=== PATIENT | female | born 1985 | race Caucasian/White ===

== ENCOUNTER → 2020-10-11 12:32 | Outpatient (BNVA) | payer OTHER, SELFPAY | PROVIDERS: PCP Internal Medicine; Visit Provider Surgery ==

== ENCOUNTER → 2020-10-22 12:29 | Outpatient (BNVA) | payer OTHER, SELFPAY | PROVIDERS: PCP Internal Medicine; Visit Provider Surgery | DX: Z01.818 Encounter for other preprocedural examination (principal); R06.02 Shortness of breath | CPT/HCPCS: 99202 ==

== ENCOUNTER 2020-10-22 13:53 | Outpatient (REF) | payer OTHER, SELFPAY ==
[2020-10-24 14:27] LABS: H Pylori Breath Test NOT DETECTED (NOT DETECTED)
== END 2020-10-22 13:54 | disposition home or self-care (01) ==
LOC: HO.LNP 13:53
PROVIDERS: Visit Provider Physician Assistant
DX: Z11.0 Encounter for screening for intestinal infectious diseases (principal)
CPT/HCPCS: 83013

== ENCOUNTER 2020-10-22 15:32 | Outpatient (REF) | payer OTHER, SELFPAY | END 2020-10-22 15:33 | disposition home or self-care (01) | LOC: HO.LNP 15:32 | PROVIDERS: Visit Provider Surgery | DX: Z13.89 Encounter for screening for other disorder (principal) ==

== ENCOUNTER 2020-10-23 10:15 | Outpatient (REF) | payer OTHER, SELFPAY ==
--- NOTE | ~2020-10-23 | XR_ITS ---
EXAMINATION: XR CHEST CLINICAL INFORMATION: Shortness of breath COMPARISON: None TECHNIQUE: 2 views of the chest were obtained. FINDINGS: The cardiac and mediastinal contours are normal. The lungs are clear. There is no pleural effusion or pneumothorax. There are degenerative changes of the thoracic spine. The posterior elements of the mid and lower thoracic spine are not included in the [id number]. XR/XR chest 2V IMPRESSION: No evidence for acute disease in the chest.
--- NOTE | 2020-10-23 10:30 | ECG_ITS ---
Test Reason : SOB Blood Pressure : / mmHG Vent. Rate : 068 BPM Atrial Rate : 068 BPM P-R Int : 144 ms QRS Dur : 084 ms QT Int : 396 ms P-R-T Axes : -03 014 004 degrees QTc Int : 421 ms Normal sinus rhythm Normal ECG No previous ECGs available Referred By: Serina Jha Electronically Signed By:Gen Franz
[2020-10-23 11:02] LABS: MANUAL DIFF FLAG NO
[2020-10-23 11:19] LABS: Basophils Percent Auto 0.6 % (0-2); Eosinophils Absolute Auto 0.2 X10*3/uL (0.0-0.4); Eosinophils Percent Auto 3.1 % (0-4); Hematocrit 39.7 % (37-47); Hemoglobin 12.7 g/dl (12.0-16.0); Imm Gran Abs Auto 0.02 X10*3/uL (0.00-0.03); Imm Gran Pct Auto 0.4 % (0.0-0.4); Lymphocytes Absolute Auto 1.7 X10*3/uL (1.2-4.9); Lymphocytes Percent Auto 32.4 % (20-40); Mean Corpuscular Hemoglobin 28.8 pg (27.0-33.0); Mean Platelet Volume 11.1 fL (9.4-12.3); Monocytes Absolute Auto 0.3 X10*3/uL (0.1-1.2); Monocytes Percent Auto 6.3 % (2-11); Neutrophils Absolute Auto 2.9 X10*3/uL (2.0-8.3); Neutrophils Percent Auto 57.2 % (45-73); Platelet Count 258 X10*3/uL (160-400); Red Blood Count 4.41 X10*6/uL (4.20-5.50); Red Cell Distribution Width 12.6 % (11.0-16.0); White Blood Count 5.1 X10*3/uL (4.8-10.8)
[2020-10-23 11:29] LABS: Alanine Aminotransferase 50 U/L (0-31); Alkaline Phosphatase 65 U/L (39-117); Anion Gap 11 (12-20); Aspartate Amino Transferase 37 U/L (5-31); Bilirubin Total 0.4 mg/dL (0.0-1.0); Blood Urea Nitrogen 10 mg/dL (9-16); C Reactive Protein 0.22 mg/dL (< or = 0.50); Calcium 9.2 mg/dL (8.4-10.2); Carbon Dioxide 24 mmol/L (22-29); Chloride 107 mmol/L (96-108); Cholesterol 147 mg/dL; Estimated Glomerular Filt Rate > 60; Glucose Fasting 92 mg/dL (60-99); HDL Cholesterol 51 mg/dL; Iron 60 mcg/dL (30-160); LDL Cholesterol Calculated 84 mg/dl; Percent Iron Saturation 20 % (15-50); Potassium 4.3 mmol/L (3.3-5.1); Sodium 138 mmol/L (135-145); Total Iron Binding Capacity 296 mcg/dL (228-428); Total Protein 7.4 g/dL (6.5-8.0); Triglycerides 62 mg/dL; Unsaturated Iron Binding 236 ug/dL
[2020-10-23 11:43] LABS: Thyroid Stimulating Hormone 0.79 uIU/mL (0.32-4.0); Vitamin D 25-OH Total 23.7 ng/mL (>30)
[2020-10-23 11:55] LABS: Vitamin B12 233 pg/mL (200-900)
[2020-10-25 10:37] LABS: Calcium (PTHI) 9.1 mg/dL (8.6-10.2); PTHI 39 pg/mL (14-64)
[2020-10-26 13:02] LABS: Vitamin B1 11 nmol/L (8-30)
[2020-10-26 22:52] LABS: Vitamin A 33 mcg/dL (38-98)
[2020-10-29 01:17] LABS: Zinc 65 mcg/dL (60-130)
== END 2020-10-23 10:16 | disposition home or self-care (01) ==
LOC: HO.10HDL 10:15
PROVIDERS: Visit Provider Surgery
DX: Z01.818 Encounter for other preprocedural examination (principal); R06.02 Shortness of breath; E55.9 Vitamin D deficiency, unspecified
CPT/HCPCS: 36415; 71046; 80053; 80061; 82306; 82607; 83013; 83540; 83970; 84425; 84443; 84590; 84630; 85025; 86140; 93005; 99211

== ENCOUNTER → 2020-11-05 08:10 | Outpatient (BNVA) | payer OTHER, SELFPAY | PROVIDERS: PCP Internal Medicine; Visit Provider Surgery | DX: E66.01 Morbid (severe) obesity due to excess calories (principal); Z68.41 Body mass index [BMI] 40.0-44.9, adult | CPT/HCPCS: 99212 ==

== ENCOUNTER → 2020-11-19 08:15 | Outpatient (BNVA) | payer OTHER, SELFPAY | PROVIDERS: PCP Internal Medicine; Visit Provider Dietitian, Registered ==

== ENCOUNTER → 2020-12-12 14:33 | Outpatient (BNVA) | payer OTHER, SELFPAY | PROVIDERS: PCP Internal Medicine; Visit Provider Surgery | DX: E66.01 Morbid (severe) obesity due to excess calories (principal); Z68.41 Body mass index [BMI] 40.0-44.9, adult | CPT/HCPCS: 99212 ==

== ENCOUNTER → 2020-12-30 15:03 | Outpatient (BNVA) | payer OTHER, SELFPAY | PROVIDERS: PCP Internal Medicine; Visit Provider Surgery | DX: E66.01 Morbid (severe) obesity due to excess calories (principal); Z68.41 Body mass index [BMI] 40.0-44.9, adult | CPT/HCPCS: 99212 ==

== ENCOUNTER → 2021-01-21 15:15 | Outpatient (BNVA) | payer OTHER, SELFPAY | PROVIDERS: PCP Internal Medicine; Visit Provider Surgery | DX: E66.01 Morbid (severe) obesity due to excess calories (principal); Z68.41 Body mass index [BMI] 40.0-44.9, adult | CPT/HCPCS: 99212 ==

== ENCOUNTER 2021-02-12 09:54 | Outpatient (REF) | payer OTHER, SELFPAY ==
[2021-02-12 14:30] LABS: MANUAL DIFF FLAG NO
[2021-02-12 14:36] LABS: Basophils Percent Auto 0.3 % (0-2); Eosinophils Percent Auto 0.4 % (0-4); Hematocrit 40.7 % (37-47); Hemoglobin 12.9 g/dl (12.0-16.0); Imm Gran Abs Auto 0.02 X10*3/uL (0.00-0.03); Imm Gran Pct Auto 0.3 % (0.0-0.4); Lymphocytes Absolute Auto 1.8 X10*3/uL (1.2-4.9); Mean Corpuscular HGB Conc 31.7 g/dl (31.0-35.0); Mean Corpuscular Hemoglobin 28.8 pg (27.0-33.0); Mean Corpuscular Volume 90.8 fL (80-98); Monocytes Absolute Auto 0.5 X10*3/uL (0.1-1.2); Monocytes Percent Auto 6.2 % (2-11); Neutrophils Absolute Auto 5.2 X10*3/uL (2.0-8.3); Neutrophils Percent Auto 68.8 % (45-73); Platelet Count 303 X10*3/uL (160-400); Red Blood Count 4.48 X10*6/uL (4.20-5.50); Red Cell Distribution Width 12.2 % (11.0-16.0); White Blood Count 7.6 X10*3/uL (4.8-10.8)
[2021-02-14 08:58] LABS: SARS COV2 IgG Positive (Negative)
== END 2021-02-12 09:55 | disposition home or self-care (01) ==
LOC: HO.LAB 09:54
PROVIDERS: PCP Internal Medicine; Referring Provider Internal Medicine; Visit Provider Surgery
DX: Z01.818 Encounter for other preprocedural examination (principal); Z20.822 Contact with and (suspected) exposure to COVID-19; E66.9 Obesity, unspecified; Z68.39 Body mass index [BMI] 39.0-39.9, adult; E55.9 Vitamin D deficiency, unspecified
CPT/HCPCS: 36415; 82306; 85025; 86769; 99212

== ENCOUNTER → 2021-03-31 10:23 | Outpatient (BNVA) | payer OTHER, SELFPAY | PROVIDERS: PCP Internal Medicine; Referring Provider Internal Medicine; Visit Provider Surgery | DX: E66.9 Obesity, unspecified (principal); Z68.39 Body mass index [BMI] 39.0-39.9, adult | CPT/HCPCS: 99212 ==

== ENCOUNTER → 2021-05-29 10:43 | Outpatient (BNVA) | payer OTHER, SELFPAY | PROVIDERS: PCP Internal Medicine; Visit Provider Surgery | DX: E66.9 Obesity, unspecified (principal); Z68.38 Body mass index [BMI] 38.0-38.9, adult | CPT/HCPCS: 99212 ==

== ENCOUNTER → 2021-06-13 10:18 | Outpatient (BNVA) | payer OTHER, SELFPAY | PROVIDERS: PCP Internal Medicine; Referring Provider Internal Medicine; Visit Provider Surgery | DX: E66.9 Obesity, unspecified (principal); Z68.39 Body mass index [BMI] 39.0-39.9, adult | CPT/HCPCS: 99212 ==

== ENCOUNTER → 2021-08-21 08:29 | Outpatient (BNVA) | payer OTHER, SELFPAY | PROVIDERS: PCP Internal Medicine; Referring Provider Internal Medicine; Visit Provider Physician Assistant Surgical | DX: E66.9 Obesity, unspecified (principal); Z68.38 Body mass index [BMI] 38.0-38.9, adult | CPT/HCPCS: 99212 ==

== ENCOUNTER → 2021-09-26 08:00 | Outpatient (BNVA) | payer OTHER, SELFPAY | PROVIDERS: PCP Internal Medicine; Visit Provider Physician Assistant Surgical ==

== ENCOUNTER → 2021-11-21 08:14 | Outpatient (BNVA) | payer OTHER, SELFPAY | PROVIDERS: PCP Internal Medicine; Visit Provider Physician Assistant Surgical | DX: Z13.89 Encounter for screening for other disorder (principal) ==

== ENCOUNTER → 2021-12-26 08:06 | Outpatient (BNVA) | payer OTHER, SELFPAY | PROVIDERS: PCP Internal Medicine; Visit Provider Physician Assistant Surgical | DX: Z13.89 Encounter for screening for other disorder (principal) ==

== ENCOUNTER 2022-07-16 09:59 | Outpatient (REF) | payer OTHER, SELFPAY ==
[2022-07-16 13:51] LABS: CT PCR NOT DETECTED (Not Detect.); NG PCR NOT DETECTED (Not Detect.)
[2022-07-17 13:32] LABS: BV Int Neg Control Negative (Negative); BV Int Pos Control Positive (Positive)
[2022-07-18 00:42] LABS: HPV mRNA E6/E7 rflx Not Detected (Not Detected)
== END 2022-07-16 10:00 | disposition home or self-care (01) ==
LOC: HO.LNP 09:59
PROVIDERS: Visit Provider Advanced Practice Midwife
DX: Z01.419 Encounter for gynecological examination (general) (routine) without abnormal findings (principal); N92.6 Irregular menstruation, unspecified; R23.2 Flushing
CPT/HCPCS: 87480; 87491; 87510; 87591; 87624; 87660; 88142

== ENCOUNTER 2022-08-13 09:17 | Outpatient (REF) | payer OTHER, SELFPAY ==
--- NOTE | ~2022-08-13 | US_ITS ---
EXAMINATION: US PELVIS CLINICAL INFORMATION: Irregular menstruation COMPARISON: None TECHNIQUE: Ultrasound of the pelvis is performed using both transabdominal and transvaginal transducers along with Doppler. Transvaginal imaging is performed due to inadequate visualization transabdominally. FINDINGS: Uterus: The uterus is anteverted and measures 7.8 x 4.6 x 6.2 cm. Bilateral Essure noted. The double wall endometrial thickness is 0.2 cm. Small amount of fluid seen in the endometrial canal. The uterus is smooth in contour and has normal myometrial echogenicity. No visible fibroid. Adnexa: Both ovaries are visualized. There is normal color flow to the adnexa. There is no ovarian torsion. There is no pelvic ascites or fluid collection. Right ovary measures 3.4 x 2.3 x 2.4 cm. 0.9 cm follicle. Hyperechoic area noted measuring 0.6 cm which could be a tiny dermoid. Left ovary measures 3.3 x 2 x 2.6 cm. 0.9 cm hyperechoic area which could be a tiny dermoid. US/US pelvic and transvaginal IMPRESSION: 1. Small amount of fluid seen in the endometrial canal. No endometrial thickening. No uterine mass. 2. Possible tiny bilateral ovarian dermoids.
[2022-08-15 00:09] LABS: DHEA Sulfate 171 mcg/dL (19-237); Prolactin 6.2 ng/mL
[2022-08-20 13:28] LABS: Testosterone, Free 1.7 pg/mL (0.1-6.4); Testosterone, Total 20 ng/dL (2-45)
== END 2022-08-13 09:18 | disposition home or self-care (01) ==
LOC: HO.HMGCX 09:17
PROVIDERS: PCP Internal Medicine; Visit Provider Advanced Practice Midwife
DX: N92.6 Irregular menstruation, unspecified (principal); R23.2 Flushing
CPT/HCPCS: 36415; 76830; 76856; 82627; 83001; 83498; 84146; 84402; 84403; 84443

== ENCOUNTER 2022-11-20 08:02 | Outpatient (REF) | payer OTHER, SELFPAY ==
[2022-11-20 16:55] LABS: CT PCR NOT DETECTED (Not Detect.); NG PCR NOT DETECTED (Not Detect.)
[2022-11-21 12:52] LABS: BV Int Neg Control Negative (Negative); BV Int Pos Control Positive (Positive)
== END 2022-11-20 08:03 | disposition home or self-care (01) ==
LOC: HO.LNP 08:02
PROVIDERS: PCP Internal Medicine; Visit Provider Advanced Practice Midwife
DX: B37.31 Acute candidiasis of vulva and vagina (principal); N83.209 Unspecified ovarian cyst, unspecified side; R10.2 Pelvic and perineal pain; G89.29 Other chronic pain; L68.0 Hirsutism; N92.6 Irregular menstruation, unspecified; Z20.2 Contact with and (suspected) exposure to infections with a predominantly sexual mode of transmission; Z71.2 Person consulting for explanation of examination or test findings
CPT/HCPCS: 0353U; 87480; 87510; 87660; 99212

== ENCOUNTER 2022-11-27 15:28 | Outpatient (REF) | payer OTHER, SELFPAY ==
--- NOTE | ~2022-11-27 | US_ITS ---
EXAMINATION: US PELVIS CLINICAL INFORMATION: Benign neoplasm, follow-up. COMPARISON: Ultrasound 08/13/2022 TECHNIQUE: Ultrasound of the pelvis is performed using both transabdominal and transvaginal transducers along with Doppler. Transvaginal imaging is performed due to inadequate visualization transabdominally. FINDINGS: UTERUS: The uterus is anteverted, anteflexed and measures 11.4 cm in length, 4.0 mL in AP and 5.7 cm in transverse dimension. The double wall endometrial thickness is 0.5 cm. The uterus is smooth in contour and has normal myometrial echogenicity. No visible fibroid. There are small nabothian cysts seen in the cervix. Bilateral Essure devices are noted. ADNEXA: Both ovaries are visualized. There is normal color flow to the adnexa. There is no ovarian torsion. There is no pelvic ascites or fluid collection. Right ovary measures 3.9 x 1.9 x 2.7 cm and volume 10.5 mL. There is a hyperechoic area seen measuring 0.5 x 0.5 x 0.5 cm similar to previous study. Previously right ovary measured 3.4 x 2.3 x 2.4 cm and volume 9.5 mL. Left ovary measures 3.7 x 2.5 x 2.1 cm and volume 10.2 mL. There is a hyperechoic area seen measuring 0.9 x 0.8 x 0.9 cm. This is similar to previous study. There is small amount of free fluid in the pelvis. US/US pelvic and transvaginal IMPRESSION: 1. Bilateral small ovarian hyperechoic areas similar to previous study. Likely dermoids. 2. Small nabothian cysts in cervix. 3. The uterus is unremarkable. 4. Small amount of free fluid in the pelvis.
== END 2022-11-27 15:29 | disposition home or self-care (01) ==
LOC: HO.US 15:28
PROVIDERS: PCP Internal Medicine; Visit Provider Advanced Practice Midwife
DX: D36.9 Benign neoplasm, unspecified site (principal)
CPT/HCPCS: 76830; 76856

== ENCOUNTER → 2023-01-14 07:41 | Outpatient (BNVA) | payer OTHER, SELFPAY | PROVIDERS: PCP Internal Medicine; Visit Provider Advanced Practice Midwife ==

== ENCOUNTER 2023-07-01 13:00 | Outpatient (AMB) | payer OTHER, SELFPAY ==
--- NOTE | 2023-07-01 13:01 | A.OFFPC_ITS ---
Vital Signs 07/01/23 13:02 Height 5 ft 5 in Weight 247 lb BMI 41.1 BP 134/72 Blood Pressure Location Lt brachial Position Sitting Pulse 66 Pulse Source Pulse Oximeter Pulse Oximetry (%) 99 Oxygen Delivery Method Room Air Intake Visit Reasons: annual exam Injection Molding Machine Operator Required: No Bologna Maker: Not Required per policy Accompanied by: Self / Same As Patient Allergies No Known Allergies Allergy (Verified 07/01/23 13:02) Medication List - Last Reconciled 07/01/23 by Arpan Raymond MD albuterol sulfate 90 mcg/actuation (ProAir HFA) 2 puffs PO Q6H PRN ascorbate calcium (vitamin C) 500 mg PO DAILY cholecalciferol (vitamin D3) 10 mcg PO DAILY lorazepam 1 mg PO BID PRN multivitamin 1 tab PO DAILY Tobacco use date assessed: 07/01/23 Dental Screening Dental Screen Date: 07/01/23 Did you have a dental visit in the last 12 months?: No Did you have a dental problem in the last 6 months where you did not have access to dental care?: No Was dental information given to patient?: Patient has dentist HPI annual exam HPI Details asthma and anxiety; stable [facility] Medical History Dermoid cyst of both ovaries Nabothian cyst Asthma Anxiety Surgical History History of sterilization procedure History of section Family History Father Diabetes mellitus Heart attack Mother No problems noted. Brother Anxiety Brother No problems noted. Son Asthma Son Asthma Social History Housing: Condominium Alcohol intake: current Alcohol intake frequency: holidays/special occasions only Alcohol type: wine Patient Tobacco Use Status: Never used Tobacco e-Cigarette/Vaping Use: Never Used Second Hand Smoke Exposure: No service: No Current occupational status: employed Cognitive needs: No Hearing needs: No Vision needs: No Female Reproductive History Menstrual Age of Menarche: 11 Questionnaire PHQ-9 Over the last 2 weeks, how often have you been bothered by any of the following problems? 1. Little interest or pleasure in doing things: more than half the days 2. Feeling down, depressed, or hopeless: more than half the days 3. Trouble falling or staying asleep, or sleeping too much: several days 4. Feeling tired or having little energy: several days 5. Poor appetite or overeating: several days 6. Feeling bad about yourself - or that you are a failure or have let yourself or your family down: not at all 7. Trouble concentrating on things, such as reading the newspaper or watching television: not at all 8. Moving or speaking so slowly that other people could have noticed. Or the opposite - being so fidgety or restless that you have been moving around a lot more than usual: not at all 9. Thoughts that you would be better off or of hurting yourself in some way: not at all Total score: 7 Depression Screening Interpretation: Negative Depression Screening Done: Yes 09777 - PHQ-9 Billing: Yes Source: Developed by Drs. Macario Ruiz, Shelby Feliz, Nick Akhtar and colleagues, with an educational donn from [email or web address]. Thrive Questionnaire Date Thrive assessed: 07/01/23 I am a: Patient What is your living situation today?: I have a steady place to live Within the past 12 months, did the food you bought not last and you didn't have the money to get more?: Never true Within the past 12 months, did you worry whether your food would run out before you got money to buy more?: Never true Do you have trouble paying for medicines?: No Do you have trouble getting transportation to medical appointments?: No Do you have trouble paying your heating and electricity bill?: No Do you have trouble taking care of your child, family member or friend?: No Do you have trouble with day-to-day activities such as bathing, preparing meals, shopping, managing finances, etc.?: No Are you currently unemployed and looking for a job?: No Are you interested in more education?: No Please select the resources that you would like help with: None AUDIT C Alcohol Use Questionnaire (AUDIT-C) 1. How often do you have a drink containing alcohol?: Monthly or less 2. How many drinks containing alcohol do you have on a typical day when you are drinking?: 1 or 2 3. How often do you have six or more drinks on one occasion?: Never Total Score: 1 Score Reviewed/Action Taken: Yes AYALA-7 AMB Questionnaire AYALA-7 Date AYALA - 7 assessed: 07/01/23 Feeling nervous, anxious, or on edge: 1 = Several days Not being able to stop or control worryin = Several days Worrying too much about different things: 1 = Several days Trouble relaxin = Several days Being so restless that it is hard to sit still: 1 = Several days Becoming easily annoyed or irritable: 1 = Several days Feeling afraid as if something awful might happen: 0 = Not at all Total AYALA-7 score (0-4 normal; 5-9 mild; 10-14 moderate; 15-21 severe): 6 Source: Developed by Drs. Macario Ruiz, Shelby Feliz, Nick Akhtar and colleagues, with an educational donn from [email or web address]. AYALA-7 Assessment Billing AYALA-7 Assessment Tool: AYALA-7 Assessment 43953 Review of Systems Const Denies chills, Denies fatigue, Denies headache(s) and Denies weight loss Eyes Denies change in vision, Denies diplopia and Denies eye pain ENT Denies vertigo, Denies dizziness, Denies headache(s) and Denies nasal discharge Card Denies chest pain, Denies rapid heart rate and Denies dyspnea on exertion Resp Denies chest congestion, Denies cough, Denies pain with cough and Denies dyspnea on exertion GI Denies abdominal pain, Denies hematochezia and Denies change in bowel habits Musc Denies myalgias, Denies arthralgias and Denies joint swelling Skin/Breast Denies lesions and Denies unusual bruising Neuro Denies vertigo, Denies dizziness, Denies headache(s) and Denies focal weakness Endo Denies fatigue Physical exam (Primary Care) Vital Signs: Last Vital Signs Pulse 66 07/01/23 13:02 BP 134/72 07/01/23 13:02 Pulse Ox 99 07/01/23 13:02 Oxygen Delivery Method Room Air 07/01/23 13:02 BMI result Body Mass Index 41.1 morbid obesity BMI Assessment/Plan discussion: High BMI High, discussed plan: lifestyle, weight reduction, dietary and physical activity Tobacco/Smoking Status: Tobacco use Status Tobacco use date assessed 07/01/23 07/01/23 13:08 Patient Tobacco Use Status Never used Tobacco 07/01/23 13:08 e-Cigarette/Vaping Use Never Used 07/01/23 13:08 PHQ-9: PHQ-9 Score PHQ-9: Total score 7 07/01/23 13:08 Depression Screening Interpretation: Negative Thrive Assessment: Date of Thrive Assessment Date Thrive assessed 07/01/23 07/01/23 13:08 Const General: cooperative, healthy appearing and no acute distress Orientation/consciousness: oriented to person, oriented to place and oriented to time HENMT Head: Yes normal to inspection, Yes normocephalic and Yes atraumatic Mouth: Normal oral and palatal mucosa present and tongue normal Throat: Yes posterior oropharynx normal and Yes uvula midline Eyes General: appearance normal, both eyes and all related structures Neck Neck: Yes normal visual inspection, Yes full ROM and Yes no lymphadenopathy Thyroid: Thyroid normal Carotids: normal carotid upstroke Chest Chest palpation & inspection: normal inspection of the chest Resp Effort & Inspection: normal respiratory effort and able to speak in complete sentences Auscultation: clear to auscultation bilaterally Cardio Jugular venous distension: no JVD Palpation: normal PMI Rate: regular rate Rhythm: regular rhythm Heart sounds: S1 normal heart sound present and S2 normal heart sound present GI Inspection: Yes normal to inspection Palpation (GI): Soft to palpation and No hepatosplenomegaly present Auscultation: normal bowel sounds General: Yes no CVA tenderness Back/Spine/Pelvis Back: no CVA tenderness Skin General skin exam: no rashes or lesions noted Neuro General: oriented to person, oriented to place and oriented to time Extrem General: Yes normal to inspection and Yes full ROM Assessment and Plan Assessment & Plan (1) Physical exam: Code(s): Z00.00 - Encounter for general adult medical examination without abnormal findings Plan: labs (2) Asthma: Code(s): J45.909 - Unspecified asthma, uncomplicated Plan: stable; same rx (3) Anxiety: Code(s): F41.9 - Anxiety disorder, unspecified Plan: stable; same rx (4) Morbid obesity due to excess calories: Code(s): E66.01 - Morbid (severe) obesity due to excess calories Plan: as above Orders: Orders Lipid Panel Today E78.5 - Hyperlipidemia, unspecified Complete Blood Count Auto Diff Today D64.9 - Anemia, unspecified Influenza [id number] Immunization Today Z23 - Encounter for immunization Comprehensive [place]. Panel Fast Today N28.9 - Disorder of kidney and ureter, unspecified Thyroid Stimulating Hormone Today E03.9 - Hypothyroidism, unspecified Medications: New flu vacc [id number] 6mos up(PF) 0.5 mL IM ONCE 0.5 mL 0RF Z23 - Encounter for immunization Coding Level of Care Code Est Pt Prev Care [id number]) Diagnoses Physical exam Z00.00 Asthma J45.909 Anxiety F41.9 Morbid obesity due to excess calories E66.01 Additional Codes AYALA-7 Assessment Billing - AYALA-7 Assessment Tool: AYALA-7 Assessment 32271 ([id number])
[2023-07-01 13:02] VITALS: BP 134/72; PULSE 66; O2SAT 99; BMI 41.1
== END 2023-07-01 14:21 | disposition home or self-care (01) ==
PROVIDERS: PCP Internal Medicine; Visit Provider Internal Medicine
DX: Z23 Encounter for immunization (principal); Z00.00 Encounter for general adult medical examination without abnormal findings; J45.909 Unspecified asthma, uncomplicated; E66.01 Morbid (severe) obesity due to excess calories; Z68.41 Body mass index [BMI] 40.0-44.9, adult; F41.9 Anxiety disorder, unspecified
CPT/HCPCS: 90471; 90686; 96127; 99395

== ENCOUNTER 2023-07-13 08:01 | Outpatient (REF) | payer OTHER, SELFPAY ==
[2023-07-13 08:12] LABS: MANUAL DIFF FLAG NO
[2023-07-13 08:25] LABS: Basophils Percent Auto 0.6 % (0-2); Eosinophils Absolute Auto 0.1 X10*3/uL (0.0-0.4); Eosinophils Percent Auto 1.7 % (0-4); Hematocrit 40.6 % (37.0-47.0); Hemoglobin 12.8 g/dl (12.0-16.0); Imm Gran Abs Auto 0.02 X10*3/uL (0.00-0.03); Imm Gran Pct Auto 0.3 % (0.0-0.4); Lymphocytes Absolute Auto 1.9 X10*3/uL (1.2-4.9); Mean Corpuscular HGB Conc 31.5 g/dl (31.0-35.0); Mean Corpuscular Volume 92.1 fL (80.0-98.0); Mean Platelet Volume 10.7 fL (9.4-12.3); Monocytes Absolute Auto 0.4 X10*3/uL (0.1-1.2); Monocytes Percent Auto 6.2 % (2-11); Neutrophils Absolute Auto 4.6 x10*3/uL (2.0-8.3); Neutrophils Percent Auto 65.2 % (45-73); Platelet Count 298 X10*3/uL (160-400); Red Blood Count 4.41 X10*6/uL (4.20-5.50); Red Cell Distribution Width 12.8 % (11.0-16.0); White Blood Count 7.1 X10*3/uL (4.8-10.8)
[2023-07-13 09:02] LABS: Alanine Aminotransferase 9 U/L (0-31); Albumin Level 3.7 g/dL (3.5-5.0); Alkaline Phosphatase 65 U/L (39-117); Anion Gap 11 (12-20); Aspartate Amino Transferase 16 U/L (5-31); Bilirubin Total 0.5 mg/dL (0.0-1.0); Blood Urea Nitrogen 11 mg/dL (9-16); Calcium 9.2 mg/dL (8.4-10.2); Carbon Dioxide 26 mmol/L (22-29); Chloride 109 mmol/L (96-108); Cholesterol 127 mg/dL (<200); Estimated Glomerular Filt Rate > 60; Glucose Fasting 97 mg/dL (60-99); HDL Cholesterol 38 mg/dL (>40); LDL Cholesterol Calculated 78 mg/dL (<100); Potassium 4.5 mmol/L (3.3-5.1); Sodium 141 mmol/L (135-145); Total Protein 7.4 g/dL (6.5-8.0); Triglycerides 58 mg/dL (<150)
[2023-07-13 09:09] LABS: Thyroid Stimulating Hormone 0.86 uIU/mL (0.32-4.0)
== END 2023-07-13 08:02 | disposition home or self-care (01) ==
LOC: HO.LAB 08:01
PROVIDERS: PCP Internal Medicine; Visit Provider Internal Medicine
DX: E03.9 Hypothyroidism, unspecified (principal); E78.5 Hyperlipidemia, unspecified; D64.9 Anemia, unspecified; N28.9 Disorder of kidney and ureter, unspecified
CPT/HCPCS: 36415; 80053; 80061; 84443; 85025

== ENCOUNTER 2023-07-14 08:06 | Outpatient (AMB) | payer OTHER, SELFPAY ==
--- NOTE | 2023-07-14 08:43 | MHC.OFFWIV ---
Intake Vital Signs 07/14/23 08:48 Height 5 ft 5 in Weight 250 lb BMI 41.6 BP 124/78 Blood Pressure Location Rt brachial Position Sitting Pulse 74 Pulse Source Pulse Oximeter Temp 99 F Temp Source Temporal Artery Scan Pulse Oximetry (%) 99 Oxygen Delivery Method Room Air Intake Visit Reasons: EST/sore throat/left ear pain (lobby masked) Intake Note: Pt is here c/o sore throat, fever and left ear pain. Pt states her son was positive for strep last week. Patient Tobacco Use Status: Never used Tobacco Allergies No Known Allergies Allergy (Verified 07/14/23 08:50) Do you need a note to return to daycare/school/sports/work: Yes HPI HPI Comments History of Present Illness Details The patient is a 37-year-old female in today for a sick visit. Patient reports sore throat and left ear pain x2 days. Patient states that her son at home recently tested positive for strep throat. She also reports fever, muscle aches, headache. Some relief with Tylenol at home. No shortness of breath. Patient's head is normocephalic, right TM visible pearly choe, left TM visible erythema present. No mastoid tenderness. Patient has clear nasal discharge, and cobblestoned pharynx. No Lymphadenopathy. Patient has otitis media of the left ear. Strep test in office was negative. Unlikely to be mastoiditis, malignant otitis, or TM rupture. Patient will be given Augmentin to be taken for the entire course. Patient instructed to use [id number] Tylenol and Motrin for symptom relief. Patient has been educated on signs of worsening symptoms and when to return to the walk-in and when to return to the emergency room. [facility] Medical History (Updated 07/14/23 @ 09:21 by DOLLY Hwang) Left otitis media Dermoid cyst of both ovaries Nabothian cyst Asthma Anxiety Surgical History History of sterilization procedure History of section Family History Father Diabetes mellitus Heart attack Mother No problems noted. Brother Anxiety Brother No problems noted. Son Asthma Son Asthma Social History Housing: Condominium Alcohol intake: current Alcohol intake frequency: holidays/special occasions only Alcohol type: wine Patient Tobacco Use Status: Never used Tobacco e-Cigarette/Vaping Use: Never Used Second Hand Smoke Exposure: No service: No Current occupational status: employed Cognitive needs: No Hearing needs: No Vision needs: No Female Reproductive History Menstrual Age of Menarche: 11 Review of Systems Const All systems reviewed & are unremarkable except as noted in HPI and below Reports headache(s) Eyes Reports blurry vision and Denies eye discharge ENT Denies dizziness, Denies ear discharge, Reports otalgia, Reports headache(s), Reports sinus pressure and Reports sore throat Card Denies chest pain Resp Denies cough Neuro Denies dizziness and Reports headache(s) Physical Exam Vital Signs: Last Vital Signs Temp 99 F 07/14/23 08:48 Pulse 74 07/14/23 08:48 BP 124/78 07/14/23 08:48 Pulse Ox 99 07/14/23 08:48 Oxygen Delivery Method Room Air 07/14/23 08:48 BMI result Body Mass Index 41.6 Vital signs reviewed and stable Const General: no acute distress Orientation/consciousness: patient oriented x3 Limitations: no limitations HEENT Head: Yes normocephalic Ears: external ears normal, TM normal on the right and TM abnormal ( left TM) wth effusion and erythematous Throat: Yes cobblestoning Neck Neck: Yes no lymphadenopathy Neuro General: patient oriented x3 Results AMB Rapid Strep AMB Rapid Strep Negative Last Edit by Ping Truong CMA on 07/14/23 09:07 Assessment & Plan Assessment & Plan (1) Left otitis media: Comment: patient will be given Augmentin to be taken for the entire course. Patient instructed to use Motrin and Tylenol as needed for symptom relief. patient states that she gets yeast infections from antibiotic use, will prescribe Diflucan. Code(s): H66.92 - Otitis media, unspecified, left ear Qualifiers: Otitis media type: unspecified Qualified Code(s): H66.92 - Otitis media, unspecified, left ear Orders: Orders AMB Rapid Strep Screen Today Z13.9 - Encounter for screening, unspecified Coding Level of Care Code Est Pt Level 3 (56601) Diagnoses Left otitis media, unspecified otitis media type H66.92 Otitis media type: unspecified Time Spent (min) 20
[2023-07-14 08:48] VITALS: BP 124/78; PULSE 74; TEMP 37.2; O2SAT 99; BMI 41.6
== END 2023-07-14 09:27 | disposition home or self-care (01) ==
PROVIDERS: PCP Internal Medicine; Visit Provider Nurse Practitioner Primary Care
DX: H66.92 Otitis media, unspecified, left ear (principal); J02.9 Acute pharyngitis, unspecified
CPT/HCPCS: 87880; 99213

== ENCOUNTER 2023-11-09 13:00 | Outpatient (AMB) | payer OTHER, SELFPAY ==
--- NOTE | 2023-11-09 12:57 | MHC.PC.OV ---
Intake Visit Reasons: Cold symptoms [phone] Allergies No Known Allergies Allergy (Verified 07/14/23 08:50) Tobacco use date assessed: 11/09/23 Dental Screening Dental Screen Date: 11/09/23 HPI Cold symptoms [phone] HPI Details cough and congestion for 4 days [facility] Medical History (Updated 11/09/23 @ 13:27 by Arpan Raymond MD) Left otitis media Dermoid cyst of both ovaries Nabothian cyst Asthma Anxiety Surgical History History of sterilization procedure History of section Family History Father Diabetes mellitus Heart attack Mother No problems noted. Brother Anxiety Brother No problems noted. Son Asthma Son Asthma Social History [facility] Alcohol intake: current Alcohol intake frequency: holidays/special occasions only Alcohol type: wine Patient Tobacco Use Status: Never used Tobacco e-Cigarette/Vaping Use: Never Used Second Hand Smoke Exposure: No service: No Current occupational status: employed Cognitive needs: No Hearing needs: No Vision needs: No Female Reproductive History Menstrual Age of Menarche: 11 Questionnaire PHQ-9 Over the last 2 weeks, how often have you been bothered by any of the following problems? 1. Little interest or pleasure in doing things: more than half the days 2. Feeling down, depressed, or hopeless: more than half the days 3. Trouble falling or staying asleep, or sleeping too much: several days 4. Feeling tired or having little energy: several days 5. Poor appetite or overeating: several days 6. Feeling bad about yourself - or that you are a failure or have let yourself or your family down: not at all 7. Trouble concentrating on things, such as reading the newspaper or watching television: not at all 8. Moving or speaking so slowly that other people could have noticed. Or the opposite - being so fidgety or restless that you have been moving around a lot more than usual: not at all 9. Thoughts that you would be better off or of hurting yourself in some way: not at all Total score: 7 Depression Screening Interpretation: Negative Depression Screening Done: Yes 69637 - PHQ-9 Billing: Yes Source: Developed by Drs. Macario Ruiz, Shelby Feliz, Nick Akhtra and colleagues, with an educational donn from [employer]. Thrive Questionnaire Date Thrive assessed: 11/09/23 I am a: Patient What is your living situation today?: I have a steady place to live Within the past 12 months, did the food you bought not last and you didn't have the money to get more?: Never true Within the past 12 months, did you worry whether your food would run out before you got money to buy more?: Never true Do you have trouble paying for medicines?: No Do you have trouble getting transportation to medical appointments?: No Do you have trouble paying your heating and electricity bill?: No Do you have trouble taking care of your child, family member or friend?: No Do you have trouble with day-to-day activities such as bathing, preparing meals, shopping, managing finances, etc.?: No Are you currently unemployed and looking for a job?: No Are you interested in more education?: No Please select the resources that you would like help with: None THRIVE Score: 0 AUDIT C Alcohol Use Questionnaire (AUDIT-C) 1. How often do you have a drink containing alcohol?: Monthly or less 2. How many drinks containing alcohol do you have on a typical day when you are drinking?: 1 or 2 3. How often do you have six or more drinks on one occasion?: Never Total Score: 1 Score Reviewed/Action Taken: Yes AYALA-7 AMB Questionnaire AYALA-7 Date AYALA - 7 assessed: 11/09/23 Feeling nervous, anxious, or on edge: 0 = Not at all Not being able to stop or control worryin = Not at all Worrying too much about different things: 0 = Not at all Trouble relaxin = Not at all Being so restless that it is hard to sit still: 0 = Not at all Becoming easily annoyed or irritable: 0 = Not at all Feeling afraid as if something awful might happen: 0 = Not at all Total AYALA-7 score (0-4 normal; 5-9 mild; 10-14 moderate; 15-21 severe): 0 Source: Developed by Drs. Macario Ruiz, Shelby Feliz, Nick Akhtar and colleagues, with an educational donn from [employer]. Review of Systems Const Denies chills, Denies headache(s) and Denies weight loss ENT Denies headache(s) Card Denies chest pain, Denies syncope, Denies irregular heart rhythm and Denies dyspnea Resp Denies dyspnea GI Denies abdominal pain, Denies change in stool character, Denies nausea and Denies vomiting Musc Denies deformity and Denies joint swelling Neuro Denies syncope and Denies headache(s) Physical exam (Primary Care) Tobacco/Smoking Status: Tobacco use Status Tobacco use date assessed 11/09/23 11/09/23 13:00 Patient Tobacco Use Status Never used Tobacco 11/09/23 13:00 e-Cigarette/Vaping Use Never Used 11/09/23 13:00 PHQ-9: PHQ-9 Score PHQ-9: Total score 7 11/09/23 13:00 Depression Screening Interpretation: Negative Thrive Assessment: Date of Thrive Assessment Date Thrive assessed 11/09/23 11/09/23 13:00 Telehealth Telehealth Location of provider rendering services: practice address Location of patient: address on file Patient Identification confirmed using: Name, : Yes Telehealth method: voice only Patient verbally consented to treatment: Yes Patient verbally consented to billing insurance company: Yes Patient informed of any privacy concerns related to visit: Yes Minutes spent on Phone/Video with Pt.: 15 (telephone) Assessment and Plan Assessment & Plan (1) Cough: Code(s): R05 - Cough Plan: rx sent Medications: New fluconazole (Diflucan) 100 mg PO DAILY 3 tabs 0RF azithromycin take 500 mg today (day 1), then 250 mg for 4 days (days 2-5) PO 6 tabs 0RF Coding Level of Care Code Tele Est Pt Level 3 (96818) Diagnoses Cough R05
== END 2023-11-09 16:11 | disposition home or self-care (01) ==
LOC: HO.HMGH 13:01
PROVIDERS: PCP Internal Medicine; Visit Provider Internal Medicine
DX: R05.9 Cough, unspecified (principal)
CPT/HCPCS: 99213

== ENCOUNTER 2024-07-07 13:05 | Outpatient (AMB) | payer OTHER, SELFPAY ==
--- NOTE | 2024-07-07 13:06 | MHC.PC.OV ---
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 Accompanied by: Self / Same As Patient Allergies No Known Allergies Allergy (Verified 07/07/24 13:07) Medication List - Last Reconciled 07/07/24 by Arpan Raymond MD albuterol sulfate 90 mcg/actuation (ProAir HFA) 2 puffs PO Q6H PRN ascorbate calcium (vitamin C) 500 mg PO DAILY cholecalciferol (vitamin D3) 10 mcg PO DAILY lorazepam 1 mg PO BID PRN multivitamin 1 tab PO DAILY semaglutide (weight loss) (Wegovy) mg subcut Tobacco use date assessed: 11/09/23 Dental Screening Dental Screen Date: 11/09/23 HPI Annual PE HPI Details mild asthma on rx; doing well [facility] Medical History (Updated 11/09/23 @ 13:27 by Arpan Raymond MD) Left otitis media Dermoid cyst of both ovaries Nabothian cyst Asthma Anxiety Surgical History History of sterilization procedure History of section Family History Father Diabetes mellitus Heart attack Mother No problems noted. Brother Anxiety Brother No problems noted. Son Asthma Son Asthma Social History Housing: Condominium Alcohol intake: current Alcohol intake frequency: holidays/special occasions only Alcohol type: wine Patient Tobacco Use Status: Never used Tobacco Tobacco use type: Cigarette e-Cigarette/Vaping Use: Never Used Second Hand Smoke Exposure: No service: No Current occupational status: employed Cognitive needs: No Hearing needs: No Vision needs: No Female Reproductive History Menstrual Age of Menarche: 11 Questionnaire PHQ-9 Over the last 2 weeks, how often have you been bothered by any of the following problems? 1. Little interest or pleasure in doing things: nearly every day 2. Feeling down, depressed, or hopeless: more than half the days 3. Trouble falling or staying asleep, or sleeping too much: not at all 4. Feeling tired or having little energy: not at all 5. Poor appetite or overeating: not at all 6. Feeling bad about yourself - or that you are a failure or have let yourself or your family down: not at all 7. Trouble concentrating on things, such as reading the newspaper or watching television: not at all 8. Moving or speaking so slowly that other people could have noticed. Or the opposite - being so fidgety or restless that you have been moving around a lot more than usual: not at all 9. Thoughts that you would be better off or of hurting yourself in some way: not at all Total score: 5 Source: Developed by Drs. Macario Ruiz, Shelby Feliz, Nick Akhtar and colleagues, with an educational donn from [employer]. Thrive Questionnaire Date Thrive assessed: 11/09/23 I am a: Patient What is your living situation today?: I have a steady place to live Within the past 12 months, did the food you bought not last and you didn't have the money to get more?: Never true Within the past 12 months, did you worry whether your food would run out before you got money to buy more?: Never true Do you have trouble paying for medicines?: No Do you have trouble getting transportation to medical appointments?: No Do you have trouble paying your heating and electricity bill?: No Do you have trouble taking care of your child, family member or friend?: No Do you have trouble with day-to-day activities such as bathing, preparing meals, shopping, managing finances, etc.?: No Are you currently unemployed and looking for a job?: No Are you interested in more education?: No Please select the resources that you would like help with: None Currently or been in a relationship where the following occur: No concerns reported THRIVE Score: 0 AUDIT C Alcohol Use Questionnaire (AUDIT-C) 1. How often do you have a drink containing alcohol?: Monthly or less 2. How many drinks containing alcohol do you have on a typical day when you are drinking?: 1 or 2 3. How often do you have six or more drinks on one occasion?: Never Total Score: 1 AYALA-7 AMB Questionnaire AYALA-7 Date AYALA - 7 assessed: 11/09/23 Feeling nervous, anxious, or on edge: 1 = Several days Not being able to stop or control worryin = Several days Worrying too much about different things: 1 = Several days Trouble relaxin = Several days Being so restless that it is hard to sit still: 1 = Several days Becoming easily annoyed or irritable: 0 = Not at all Feeling afraid as if something awful might happen: 0 = Not at all Total AYALA-7 score (0-4 normal; 5-9 mild; 10-14 moderate; 15-21 severe): 5 Source: Developed by Drs. Macario Ruiz, Shelby Feliz, Nick Akhtar and colleagues, with an educational donn from [employer]. Review of Systems Const Denies chills, Denies fatigue, Denies headache(s) and Denies weight loss Eyes Denies change in vision, Denies diplopia and Denies eye pain ENT Denies vertigo, Denies dizziness, Denies headache(s) and Denies nasal discharge Card Denies chest pain, Denies rapid heart rate and Denies dyspnea on exertion Resp Denies chest congestion, Denies cough, Denies pain with cough and Denies dyspnea on exertion GI Denies abdominal pain, Denies hematochezia and Denies change in bowel habits Musc Denies myalgias, Denies arthralgias and Denies joint swelling Skin/Breast Denies lesions and Denies unusual bruising Neuro Denies vertigo, Denies dizziness, Denies headache(s) and Denies focal weakness Endo Denies fatigue Physical exam (Primary Care) Vital Signs: Last Vital Signs Pulse 87 07/07/24 13:07 BP 124/82 07/07/24 13:07 Pulse Ox 98 07/07/24 13:07 Oxygen Delivery Method Room Air 07/07/24 13:07 BMI result Body Mass Index 31.8 Tobacco/Smoking Status: Tobacco use Status Tobacco use date assessed 11/09/23 07/07/24 13:11 Patient Tobacco Use Status Never used Tobacco 07/07/24 13:11 Tobacco use type Cigarette 07/07/24 13:11 e-Cigarette/Vaping Use Never Used 07/07/24 13:11 PHQ-9: PHQ-9 Score PHQ-9: Total score 5 07/07/24 13:30 Thrive Assessment: Date of Thrive Assessment Date Thrive assessed 11/09/23 07/07/24 13:11 Currently or been in a relationship where the following occur: No concerns reported Const General: cooperative, healthy appearing and no acute distress Orientation/consciousness: oriented to person, oriented to place and oriented to time HENMT Head: Yes normal to inspection, Yes normocephalic and Yes atraumatic Mouth: Normal oral and palatal mucosa present and tongue normal Throat: Yes posterior oropharynx normal and Yes uvula midline Eyes General: appearance normal, both eyes and all related structures Neck Neck: Yes normal visual inspection, Yes full ROM and Yes no lymphadenopathy Thyroid: Thyroid normal Carotids: normal carotid upstroke Chest Chest palpation & inspection: normal inspection of the chest Resp Effort & Inspection: normal respiratory effort and able to speak in complete sentences Auscultation: clear to auscultation bilaterally Cardio Jugular venous distension: no JVD Palpation: normal PMI Rate: regular rate Rhythm: regular rhythm Heart sounds: S1 normal heart sound present and S2 normal heart sound present GI Inspection: Yes normal to inspection Palpation (GI): Soft to palpation and No hepatosplenomegaly present Auscultation: normal bowel sounds General: Yes no CVA tenderness Back/Spine/Pelvis Back: no CVA tenderness Skin General skin exam: no rashes or lesions noted Neuro General: oriented to person, oriented to place and oriented to time Extrem General: Yes normal to inspection and Yes full ROM Coding Level of Care Code Est Pt Prev Care 18-39y(44745) Diagnoses Physical exam Z00.00 Asthma J45.909 Assessment & Plan Assessment & Plan (1) Physical exam: Code(s): Z00.00 - Encounter for general adult medical examination without abnormal findings Category: Medical Plan: stable; do labs (2) Asthma: Code(s): J45.909 - Unspecified asthma, uncomplicated Category: Medical Plan: stable; same rx Orders: Orders Lipid Panel Today Z13.220 - Encounter for screening for lipoid disorders Thyroid Stimulating Hormone Today Z13.29 - Encounter for screening for other suspected endocrine disorder Complete Blood Count Auto Diff Today Z13.0 - Encounter for screening for diseases of the blood and blood-forming organs and certain disorders involving the immune mechanism Comprehensive [place]. Panel Fast Today Z13.9 - Encounter for screening, unspecified
[2024-07-07 13:07] VITALS: BP 124/82; PULSE 87; O2SAT 98; BMI 31.8
== END 2024-07-07 13:52 | disposition home or self-care (01) ==
LOC: HO.HMCH 13:06
PROVIDERS: PCP Internal Medicine; Visit Provider Internal Medicine
DX: Z00.00 Encounter for general adult medical examination without abnormal findings (principal); J45.909 Unspecified asthma, uncomplicated

== ENCOUNTER → 2024-07-07 13:05 | Outpatient (BNVA) | payer OTHER, SELFPAY | PROVIDERS: PCP Internal Medicine; Visit Provider Internal Medicine | DX: Z00.00 Encounter for general adult medical examination without abnormal findings (principal); J45.909 Unspecified asthma, uncomplicated | CPT/HCPCS: 96127; 99395 ==

== ENCOUNTER 2024-09-21 08:50 | Outpatient (AMB) | payer BC, MEDICAID, SELFPAY ==
[2024-09-21 09:17] VITALS: BP 136/80; PULSE 80; O2SAT 97; BMI 30.4
--- NOTE | 2024-09-21 09:17 | AM.OFFWIN_ITS ---
Intake Vital Signs 09/21/24 09:17 Height 5 ft 5 in Weight 183 lb BMI 30.4 BP 136/80 Blood Pressure Location Lt brachial Position Sitting Pulse 80 Pulse Source Pulse Oximeter Pulse Oximetry (%) 97 Oxygen Delivery Method Room Air Intake Visit Reasons: EP-lt leg numbness Intake Note: Pt is here today for a walk in visit. Pt c/o L leg numbness and uncomfortable for 2 weeks. Patient Tobacco Use Status: Never used Tobacco Allergies No Known Allergies Allergy (Verified 09/21/24 09:21) Do you need a note to return to daycare/school/sports/work: Yes HPI HPI Comments History of Present Illness Details History of Present Illness - The patient is a 38-year-old female pr esenting with numbness in the right side of her leg. - The numbness has persisted for several weeks without any associated pain or tingling sensations but causes discomfort. - The condition has led to difficulty in ascending stairs. - Cold weather appears to exacerbate the numbness. - There is no association with recent tr auma, and the patient has not initiated any pharmacological treatment. - patient denies any active cancer, lung recent long plane flights, personal history of a DVT, PAD, she does not take control pills and she is not a smoker. - Family history reveals neuropathy in c lose relatives. Physical Exam General: Cooperative, healthy appearing, comfortable, no acute distress and well developed Orientation: Patient oriented x3 Limitations: No limitations Head: Normal to inspection Ears: Hearing grossly normal bilaterally Nose: Normal external nose presentn Eyes: Appearance normal, both eyes and all related structures Neck: Normal visual inspection and Yes full ROM Respiratory: Normal respiratory effort and able to speak in complete sentences. Skin: No rashes or lesions noted Neuro: Patient oriented x3 Extremities: see below [facility] Medical History (Updated 09/21/24 @ 09:52 by Laura Tineo PA-C) Left otitis media Dermoid cyst of both ovaries Nabothian cyst Asthma Anxiety Surgical History History of sterilization procedure History of section Family History Father Diabetes mellitus Heart attack Mother No problems noted. Brother Anxiety Brother No problems noted. Son Asthma Son Asthma Social History Housing: Condominium Alcohol intake: current Alcohol intake frequency: holidays/special occasions only Alcohol type: wine Patient Tobacco Use Status: Never used Tobacco Tobacco use type: Cigarette e-Cigarette/Vaping Use: Never Used Second Hand Smoke Exposure: No service: No Current occupational status: employed Cognitive needs: No Hearing needs: No Vision needs: No Female Reproductive History Menstrual Age of Menarche: 11 Review of Systems Const All systems reviewed & are unremarkable except as noted in HPI and below Physical Exam Vital Signs: Last Vital Signs Pulse 80 09/21/24 09:17 BP 136/80 09/21/24 09:17 Pulse Ox 97 09/21/24 09:17 Oxygen Delivery Method Room Air 09/21/24 09:17 BMI result Body Mass Index 30.4 Extrem Left lower extremity: lower leg (strength intact 5/5, numbness in lateral mid calf, negative homans) Details: normal to inspection; no erythema, no tenderness, no localized swelling, no pitting edema, no abrasions, no lacerations, no ecchymosis and no unusual warmth Assessment & Plan Assessment & Plan (1) Left leg paresthesias: Code(s): R20.2 - Paresthesia of skin Plan: The patient?s symptoms of leg numbness are assessed with concern for possible nerve compression, hence an anti-inflammatory medication such as naproxen is proposed to alleviate symptoms. Evaluation for DVT showed no significant findings, Wells score -2, and thus conservative management with Alevel ATC x 3 days then PRN is suitable at this point, with follow-up with PCP advised if symptoms persist. Did recommend that if she noticed worsening symptoms, swelling in the leg, color changes of the skin or pain, to come back for a DVT rule out. Patient was informed and verbally consented to the use of an ambient scribe for clinic note documentation during this visit. Coding Level of Care Code Est Pt Level 3 (79828) Diagnoses Left leg paresthesias R20.2
== END 2024-09-21 09:47 | disposition home or self-care (01) ==
PROVIDERS: PCP Internal Medicine; Visit Provider Physician Assistant
DX: R20.2 Paresthesia of skin (principal)

== ENCOUNTER → 2024-09-21 08:50 | Outpatient (BNVA) | payer OTHER, MEDICAID, SELFPAY | PROVIDERS: PCP Internal Medicine; Visit Provider Physician Assistant ==

== ENCOUNTER 2024-12-21 16:01 | Outpatient (REF) | payer OTHER, MEDICAID, SELFPAY | END 2024-12-21 16:02 | disposition home or self-care (01) | LOC: HO.LAB 16:01 | PROVIDERS: PCP Internal Medicine | DX: F32.A Depression, unspecified (principal); E66.9 Obesity, unspecified; E55.9 Vitamin D deficiency, unspecified; F41.9 Anxiety disorder, unspecified; J45.909 Unspecified asthma, uncomplicated; R82.90 Unspecified abnormal findings in urine; L30.9 Dermatitis, unspecified | CPT/HCPCS: 81002; 87086; 96127 ==

== ENCOUNTER 2024-12-21 16:01 | Outpatient (AMB) | payer OTHER, MEDICAID, SELFPAY ==
[2024-12-21 16:14] VITALS: BP 114/76; PULSE 75; RESP 16; TEMP 36.3; O2SAT 99; BMI 29.9
--- NOTE | 2024-12-21 16:14 | MHC.PC.OV ---
Vital Signs 12/21/24 16:14 Height 5 ft 5 in Weight 179 lb 6.4 oz BMI 29.9 BP 114/76 Blood Pressure Location Lt brachial Position Sitting Respiration 16 Pulse 75 Pulse Source Pulse Oximeter Temp 97.3 F Temp Source Temporal Artery Scan Pulse Oximetry (%) 99 Oxygen Delivery Method Room Air Intake Visit Reasons: KAYCEE Dr Raymond Mold Making Supervisor Required: No Accompanied by: Self / Same As Patient Allergies No Known Allergies Allergy (Verified 12/21/24 16:19) Medication List - Last Reconciled 12/21/24 by Iqra Gaona PA-C albuterol sulfate 90 mcg/actuation (ProAir HFA) 2 puffs PO Q6H PRN ascorbate calcium (vitamin C) 500 mg PO DAILY cholecalciferol (vitamin D3) 10 mcg PO DAILY lorazepam 1 mg PO BID PRN multivitamin 1 tab PO DAILY semaglutide (weight loss) (Wegovy) mg subcut Tobacco use date assessed: 12/21/24 Dental Screening Dental Screen Date: 12/21/24 Did you have a dental visit in the last 12 months?: Yes Did you have a dental problem in the last 6 months where you did not have access to dental care?: No Was dental information given to patient?: Patient has dentist HPI KAYCEE Dr Raymond HPI Details 39-year-old female with past medical history of obesity and anxiety last seen 07/[address] Raymond coming in for transfer of care. [facility] and has been on the Wegovy and has been weaning herself off and will be seen next month for follow up care. Going into surgery on Wednesday for abdominoplasty with weight management as well. She uses albuterol as needed for her asthma. She also regularly sees a therapist. Depression is managed with therapy, now twice monthly. Eczema on extremities is more aggressive during seasonal transitions. [facility] Medical History Morbid obesity due to excess calories Left otitis media Dermoid cyst of both ovaries Nabothian cyst Asthma Anxiety Surgical History History of sterilization procedure History of section Family History Father Diabetes mellitus Heart attack Mother No problems noted. Brother Anxiety Brother No problems noted. Son Asthma Son Asthma Social History Housing: Condominium Alcohol intake: current Alcohol intake frequency: holidays/special occasions only Alcohol type: wine Patient Tobacco Use Status: Never used Tobacco Tobacco use type: Cigarette e-Cigarette/Vaping Use: Never Used Second Hand Smoke Exposure: No service: No Current occupational status: employed Cognitive needs: No Hearing needs: No Vision needs: No Female Reproductive History Menstrual Age of Menarche: 11 Questionnaire PHQ-9 Over the last 2 weeks, how often have you been bothered by any of the following problems? 1. Little interest or pleasure in doing things: not at all 2. Feeling down, depressed, or hopeless: several days 3. Trouble falling or staying asleep, or sleeping too much: several days 4. Feeling tired or having little energy: several days 5. Poor appetite or overeating: not at all 6. Feeling bad about yourself - or that you are a failure or have let yourself or your family down: not at all 7. Trouble concentrating on things, such as reading the newspaper or watching television: more than half the days 8. Moving or speaking so slowly that other people could have noticed. Or the opposite - being so fidgety or restless that you have been moving around a lot more than usual: not at all 9. Thoughts that you would be better off or of hurting yourself in some way: not at all Total score: 5 Depression Screening Interpretation: Positive Depression Screening Follow-up: Existing condition and In treatment Depression Screening Done: Yes 96469 - PHQ-9 Billing: Yes Source: Developed by Drs. Macario Ruiz, Shelby Feliz, Nick Akhtar and colleagues, with an educational donn from [employer]. Thrive Questionnaire Date Thrive assessed: 12/21/24 I am a: Patient What is your living situation today?: I have a steady place to live Within the past 12 months, did the food you bought not last and you didn't have the money to get more?: Never true Within the past 12 months, did you worry whether your food would run out before you got money to buy more?: Never true Do you have trouble paying for medicines?: No Do you have trouble getting transportation to medical appointments?: No Do you have trouble paying your heating and electricity bill?: No Do you have trouble taking care of your child, family member or friend?: No Do you have trouble with day-to-day activities such as bathing, preparing meals, shopping, managing finances, etc.?: No Are you currently unemployed and looking for a job?: No Are you interested in more education?: No Please select the resources that you would like help with: None Currently or been in a relationship where the following occur: No concerns reported THRIVE Score: 0 AUDIT C Alcohol Use Questionnaire (AUDIT-C) 1. How often do you have a drink containing alcohol?: Monthly or less 2. How many drinks containing alcohol do you have on a typical day when you are drinking?: 1 or 2 3. How often do you have six or more drinks on one occasion?: Never Total Score: 1 Score Reviewed/Action Taken: No AYALA-7 AMB Questionnaire AYALA-7 Date AYALA - 7 assessed: 12/21/24 Feeling nervous, anxious, or on edge: 1 = Several days Not being able to stop or control worryin = Several days Worrying too much about different things: 1 = Several days Trouble relaxin = Several days Being so restless that it is hard to sit still: 1 = Several days Becoming easily annoyed or irritable: 0 = Not at all Feeling afraid as if something awful might happen: 0 = Not at all Total AYALA-7 score (0-4 normal; 5-9 mild; 10-14 moderate; 15-21 severe): 5 Source: Developed by Drs. Macario Ruiz, Shelby Feliz, Nick Akhtar and colleagues, with an educational donn from [employer]. AYALA-7 Assessment Billing AYALA-7 Assessment Tool: AYALA-7 Assessment 17229 Review of Systems Const Denies body aches, Denies chills, Denies fever(s), Denies headache(s) and Denies poor appetite Eyes Reports no additional complaints ENT Denies dizziness and Denies headache(s) Card Denies chest pain, Denies lightheadedness and Denies dyspnea Resp Denies cough and Denies dyspnea GI Denies abdominal pain, Denies nausea and Denies vomiting Reports no additional complaints Musc Reports no additional complaints and Denies abnormal gait Skin/Breast Reports system reviewed and no additional complaints, except as documented Neuro Denies abnormal gait, Denies dizziness and Denies headache(s) Psych Reports no additional complaints Physical exam (Primary Care) Vital Signs: Last Vital Signs Temp 97.3 F 12/21/24 16:14 Pulse 75 12/21/24 16:14 Resp 16 12/21/24 16:14 BP 114/76 12/21/24 16:14 Pulse Ox 99 12/21/24 16:14 Oxygen Delivery Method Room Air 12/21/24 16:14 BMI result Body Mass Index 29.9 Tobacco/Smoking Status: Tobacco use Status Tobacco use date assessed 12/21/24 12/21/24 16:25 Patient Tobacco Use Status Never used Tobacco 12/21/24 16:25 Tobacco use type Cigarette 12/21/24 16:25 e-Cigarette/Vaping Use Never Used 12/21/24 16:25 PHQ-9: PHQ-9 Score PHQ-9: Total score 5 12/21/24 17:01 Depression Screening Interpretation: Positive Depression Screening Follow-up: Existing condition and In treatment Thrive Assessment: Date of Thrive Assessment Date Thrive assessed 12/21/24 12/21/24 16:25 Currently or been in a relationship where the following occur: No concerns reported Const General: cooperative, healthy appearing, comfortable and no acute distress Orientation/consciousness: patient oriented x3 HENMT Head: Yes normocephalic Ears: hearing grossly normal bilaterally General nose exam: Normal external nose present Eyes General: appearance normal, both eyes and all related structures Conjunctivae: conjunctivae normal Neck Neck: Yes full ROM and Yes no lymphadenopathy Resp Effort & Inspection: normal respiratory effort Auscultation: clear to auscultation bilaterally, no crackles, no rales, no rhonchi and no wheezes Cardio Rate: regular rate Rhythm: regular rhythm Skin General skin exam: no rashes or lesions noted Neuro General: patient oriented x3 Gait exam (Neuro): Normal gait present Extrem General: Yes normal to inspection, Yes full ROM and No edema Psych Affect: normal affect Attitude: cooperative Insight: Good insight present (Psych) Judgement: Good judgement present (Psych) Results AMB Urinalysis Dipstick UR Leukocytes Negative Last Edit by Marzena Amaya LEAD JAVA DEVELOPER ARCHITECT on 12/21/24 17:02 UR Nitrite Negative Last Edit by Marzena Amaya, LEAD JAVA DEVELOPER ARCHITECT on 12/21/24 17:02 UR Urobilinogen Normal Last Edit by Marzena Amaya, LEAD JAVA DEVELOPER ARCHITECT on 12/21/24 17:02 UR Protein Negative Last Edit by Marzena Amaya, LEAD JAVA DEVELOPER ARCHITECT on 12/21/24 17:02 UR Ph 7.0 Last Edit by Marzena Amaya, LEAD JAVA DEVELOPER ARCHITECT on 12/21/24 17:02 UR Blood Negative Last Edit by Marzena Amaya, LEAD JAVA DEVELOPER ARCHITECT on 12/21/24 17:02 UR Specific [place] 1.020 Last Edit by Marzena Amaya, LEAD JAVA DEVELOPER ARCHITECT on 12/21/24 17:02 UR Ketone Negative Last Edit by Marzena Amaya, LEAD JAVA DEVELOPER ARCHITECT on 12/21/24 17:02 UR Bilirubin Negative Last Edit by Marzena Amaya, LEAD JAVA DEVELOPER ARCHITECT on 12/21/24 17:02 UR Glucose Negative Last Edit by Marzena Amaya, LEAD JAVA DEVELOPER ARCHITECT on 12/21/24 17:02 Results Reviewed Results Reviewed: Laboratory Last Values Urine pH (Clinic) 7.0 12/21/24 16:58 Specific [place] (Clinic) 1.020 12/21/24 16:58 Ur Protein (Clinic) Negative 12/21/24 16:58 Ur Ketones (Clinic) Negative 12/21/24 16:58 Urine Blood (Clinic) Negative 12/21/24 16:58 Urine Nitrite Negative 12/21/24 16:58 Urine Bilirubin (Clinic) Negative 12/21/24 16:58 Urobilinogen (Clinic) Normal 12/21/24 16:58 Leukocyte Esterase (Clinic) Negative 12/21/24 16:58 Urine Glucose (Clinic) Negative 12/21/24 16:58 Coding Level of Care Code Est Pt Level 3 (56543) Diagnoses Depression F32.A Obesity E66.9 Vitamin D deficiency E55.9 Anxiety F41.9 Asthma J45.909 Bad odor of urine R82.90 Eczema L30.9 Additional Codes AYALA-7 Assessment Billing - AYALA-7 Assessment Tool: AYALA-7 Assessment 66695 ([id number]) PHQ-9 - 56485 - PHQ-9 Billing: Yes ([id number]) Assessment & Plan Assessment & Plan (1) Depression: Code(s): F32.A - Depression, unspecified Category: Medical Plan: Patient possibly interested in medication management referral was placed to outpatient psych clinic today. (2) Obesity: Code(s): E66.9 - Obesity, unspecified Category: Medical Plan: Healthy diet and regular exercise is encouraged. Currently [facility] and scheduled to have abdominoplasty next week. No longer on Wegovy. (3) Vitamin D deficiency: Code(s): E55.9 - Vitamin D deficiency, unspecified Category: Medical Plan: Plan to ordered for updated blood work (4) Anxiety: Code(s): F41.9 - Anxiety disorder, unspecified Category: Medical Plan: Referral was placed to outpatient psych clinic for further evaluation and treatment (5) Asthma: Code(s): J45.909 - Unspecified asthma, uncomplicated Category: Medical Plan: Asthma currently controlled on present medications. Continue on albuterol as needed. Avoid triggers such as allergies. (6) Bad odor of urine: Code(s): R82.90 - Unspecified abnormal findings in urine Category: Medical Plan: Urinalysis was negative plan to obtain culture for further evaluation. (7) Eczema: Code(s): L30.9 - Dermatitis, unspecified Category: Medical Plan: Advised the use of topical emollients such as Aquaphor, Vaseline or Eucerin. Also gave prescription for topical corticosteroid for breakthrough episodes. Steroid not to be used longer than 14 days at a time. Plan I advised the patient on her upcoming appendectomy and pelvic organ lift, emphasizing perioperative care. Her eczema will be managed with stronger topicals, and I support her ongoing therapy for depression while coordinating additional psychiatric evaluation for ADHD. Her diligent weight management has been addressed, and medication adjustments provided as per her insurance limits. Allergy medication updates to [facility] were suggested to manage symptoms effectively, and urinalysis will investigate genitourinary concerns. We will remain in contact regarding potential insurance impact on her treatment plans. This note was constructed using voice recognition software. While every effort has been made to ensure accuracy and survival equipment repairer, still areas may have been included sometimes these areas may affect the content or meeting of the given symptoms. Total time spent caring for the patient today was 20 minutes. This includes time spent before the visit reviewing the chart, time spent during the visit, and time spent after the visit and documentation. Patient was informed and verbally consented to the use of an ambient scribe for clinic note documentation during this visit. Orders: Orders Urine Culture 12/21/24 R82.90 - Unspecified abnormal findings in urine AMB Urinalysis Dipstick 12/21/24 Z13.9 - Encounter for screening, unspecified Comprehensive [place]. Panel Fast 12/21/24 Z13.9 - Encounter for screening, unspecified Thyroid Stimulating Hormone 12/21/24 Z13.29 - Encounter for screening for other suspected endocrine disorder Vitamin B12 and Folate 12/21/24 Z00.00 - Encounter for general adult medical examination without abnormal findings Free T4 (Free Thyroxine) 12/21/24 Z00.00 - Encounter for general adult medical examination without abnormal findings Complete Blood Count Auto Diff 12/21/24 Z13.0 - Encounter for screening for diseases of the blood and blood-forming organs and certain disorders involving the immune mechanism Lipid Panel 12/21/24 Z13.220 - Encounter for screening for lipoid disorders Hepatitis B Surface Antibody 12/21/24 Z00.00 - Encounter for general adult medical examination without abnormal findings Vitamin D 25-OH Total 12/21/24 Z00.00 - Encounter for general adult medical examination without abnormal findings Referrals Psychiatry Outpatient Consultation Service F32.A - Depression, unspecified, F41.9 - Anxiety disorder, unspecified Medications: New triamcinolone acetonide 0.1% 1 appl topical DAILY 15 grams 0RF fexofenadine ([facility]) 180 mg PO DAILY 90 tabs 1RF
--- OUTSIDE RECORDS SUMMARY | 2024-12-21 18:17 | XMS_ITS | Clinical Summary ---
Author Organization [address] [place] [address] [place] [phone] Phone Care Team Providers Care Technical Agronomist Name Role Phone Arpan Raymond MD Primary Care Provider [phone] Allergies No known active allergies Medications ASCORBIC ACID, VITAMIN C, ORAL Take by mouth. Active LORAZEPAM ORAL Take by mouth. Active ergocalciferol, vitamin D2, (VITAMIN D2 ORAL) Take by mouth. Active semaglutide (Wegovy) 2.4 mg/0.75 mL injection pen Inject 2.4 mg under the skin every 7 (seven) days. 3 mL 2 10/09/2024 Active Active Problems No known active problems Encounters Date Type Department Care Team Description 10/16/2024 Telephone Bariatric Surgery [address] [phone] Ranjeet Cornejo MD 10/09/2024 Telephone Bariatric Surgery [address] [phone] Ranjeet Cornejo MD Med Refill 10/05/2024 9:15 AM EST Office Visit Bariatric Surgery [address] [phone] Ranjeet Cornejo MD Abdominal panniculus, symptomatic (Primary Dx) from Last 3 Months Surgical History Surgery Date Site/Laterality Comments SECTION PROCEDURE: HISTORICAL DELIVERY SECTION TUBAL LIGATION Social History Tobacco Use Types Packs/Day Years Used Date Smoking Tobacco: Never Smokeless Tobacco: Never Comments Unknown Sex and Gender Information Value Date Recorded Sex Assigned at Not on file Legal Sex Female 11:02 AM EDT Gender Identity Not on file Sexual Orientation Not on file Obstetrics History Last Filed Vital Signs Vital Sign Reading Time Taken Comments Blood Pressure 120/79 10/05/2024 9:33 AM EST Pulse 76 10/05/2024 9:33 AM EST Temperature 36.6 ??C (97.8 ??F) 10/05/2024 9:33 AM ES T Respiratory Rate - - Oxygen Saturation - - Inhaled Oxygen Concentration - - Weight 81.2 kg (179 lb) 12/11/2024 11:00 AM EDT Height 165.1 cm (5' 5 ) 12/11/2024 11:00 AM EDT Body Mass Index 29.79 12/11/2024 11:00 AM EDT Plan of Treatment Upcoming Encounters Date Type Department Care Team (Latest Contact Info) Description 12/26/2024 7:30 AM EDT Hospital Encounter [facility] [place] [address] [place] [phone] Jammie Werner MD [address] [place] [address] 12/26/2024 7:30 AM EDT - 12/26/2024 10:30 AM EDT Surgery [facility] [place] [address] [place] [phone] Jammie Werner MD [address] [place] [address] PANNICULECTOMY [[id number] (CPT??)] 01/04/2025 4:15 PM EDT Office Visit Bariatric Surgery [facility] [address] [phone] Ranjeet Cornejo MD [address] [address] Scheduled Procedures Name Priority Associated Diagnoses Date/Ti me PANNICULECTOMY Atrophic disorder of skin, unspecified 12/26/2024 7:30 AM EDT LABIAPLASTY Atrophic disorder of skin, unspecified 12/26/2024 7:30 AM EDT Health Maintenance Due Date Last Done Comments Breast Cancer Screening 1984 DTaP,Tdap,and Td Vaccines (1 - Tdap) 11/05/2003 Hepatitis B Vaccines (1 of 3 - 19+ 3-dose series) 11/05/2003 Cervical Cancer Screening: P ap Smear 2005 Cholesterol Screening (Lipid Panel) 03/31/2024 Depression Screening 03/31/2024 HIV Screening 03/31/2024 Hepatitis C Screening 03/31/2024 Social Influencers of Health Screening 03/31/2024 COVID-19 Vaccine ( - 2023-2 5 season) 2024 Influenza Vaccine (Season Ended) 2025 HIB Vaccines Aged Out No longer eligi ble based on patient's age to complete this topic HPV Vaccines Aged Out No longer eligi ble based on patient's age to complete this topic Hepatitis A Vaccines Aged Out No long er eligible based on patient's age to complete this topic IPV Vaccines Aged Out No longer eligi ble based on patient's age to complete this topic MMR Vaccines Aged Out No longer eligi ble based on patient's age to complete this topic Meningococcal ACWY Vaccine Aged Out N o longer eligible based on patient's age to complete this topic Meningococcal B Vaccine Aged Out No l onger eligible based on patient's age to complete this topic Pneumococcal Vaccine: Pediat rics (0 to 5 Years) and At-Risk Patients (6 to 64 Years) Aged Out No longer eligible b ased on patient's age to complete this topic RSV Immunization Patients Un joe 20 months Aged Out No longer eligible b ased on patient's age to complete this topic Varicella Vaccines Aged Out No longer eligible based on patient's age to complete this topic Insurance MEDICAID - [place] [facility] Care Teams Technical Agronomist Relationship Specialty Start Date End Date Arpan Raymond MD [address] [place] [address] PCP - General 12/02/23
== END 2024-12-21 18:03 | disposition home or self-care (01) ==
LOC: HO.HMCH 16:02
PROVIDERS: PCP Internal Medicine
DX: Z13.9 Encounter for screening, unspecified (principal)

== ENCOUNTER 2025-04-03 10:27 | Outpatient (REF) | payer OTHER, MEDICAID, SELFPAY ==
--- OUTSIDE RECORDS SUMMARY | 2025-04-03 11:26 | XMS_ITS | Clinical Summary ---
Author Organization [facility] Address [address] [place] [phone] Phone Care Team Providers Care Forensic Chemist Name Role Phone Arpan Raymond MD Primary Care Provider [phone] Social History Tobacco Use Types Packs/Day Years Used Date Smoking Tobacco: Never Assessed Education Answer Date Recorded Are you interested in more education? Not on marissa e 01/02/2023 Are you concerned about learning? Not on file 01/02/2023 No 01/02/2023 No 01/02/2023 Digital Access Answer Date Recorded No 01/31/2023 No 01/31/2023 No 01/31/2023 Reliable internet access at home? Not on file 01/31/2023 Device with a working camera? Not on file Comments Unknown Sex and Gender Information Value Date Recorded Sex Assigned at Not on file Legal Sex Female 4:18 PM EDT Gender Identity Not on file Sexual Orientation Not on file Plan of Treatment Health Maintenance Due Date Last Done Comments DEPRESSION SCREENING 1996 SMOKING Hx and SMOKELESS TOBACCO SCREENING 1997 HEPATITIS C SCREENING 2002 HIV ONE-TIME SCREENING (18-6 5 YEARS) 2002 PAP SMEAR 2005 COVID-19 VACCINE (2023-2 5 season) 2024 01/15/2021, 12/26/2020 MAMMOGRAM 2024 Adult Td,Tdap Booster 04/21/2027 04/21/2017 HEPATITIS A VACCINES Aged Out No long er eligible based on patient's age to complete this topic HIB VACCINES Aged Out No longer eligi ble based on patient's age to complete this topic MENINGOCOCCAL VACCINES (ACWY) Aged Out No longer eligible based on patient's age to complete this topic MENINGOCOCCAL VACCINES (B) Aged Out N o longer eligible based on patient's age to complete this topic PNEUMOCOCCAL VACCINES (0-49 years) Aged Out No longer eligible b ased on patient's age to complete this topic Medical Devices Not on file Insurance [employer] [place] [address] [place] [address] [place] [address] [place] [address] [place] [address] [place] [address] [place] [address] [place] [address] [place] [address] [place] [address] ACO Care Teams Forensic Chemist Relationship Specialty Start Date End Date Arpan Raymond MD [address] [place] [address] [address] PCP - General Internal Medicine 07/10/21 Additional Source Comments The information contained in this document represents components of the legal health record. It is not the complete legal health record.[facility]
[2025-04-03 13:11] LABS: MANUAL DIFF FLAG NO
[2025-04-03 13:30] LABS: Hematocrit 38.3 % (37.0-47.0); Hemoglobin 12.5 g/dl (12.0-16.0); Imm Gran Abs Auto 0.01 X10*3/uL (0.00-0.03); Imm Gran Pct Auto 0.2 % (0.0-0.4); Lymphocytes Absolute Auto 1.7 X10*3/uL (1.2-4.9); Mean Corpuscular HGB Conc 32.6 g/dl (31.0-35.0); Mean Corpuscular Hemoglobin 30.1 pg (27.0-33.0); Mean Corpuscular Volume 92.3 fL (80.0-98.0); NRBC Abs Auto 0.030 X10*3/uL (0.0-0.012); NRBC Pct Auto 0.7 /100WBC (0.0-0.2); Platelet Count 252 X10*3/uL (160-400); Red Blood Count 4.15 X10*6/uL (4.20-5.50); White Blood Count 4.4 X10*3/uL (4.8-10.8)
[2025-04-03 13:46] LABS: Alanine Aminotransferase 11 U/L (0-31); Albumin Level 4.0 g/dL (3.5-5.0); Alkaline Phosphatase 59 U/L (39-117); Anion Gap 11 (12-20); Aspartate Amino Transferase 17 U/L (5-31); Blood Urea Nitrogen 12 mg/dL (9-16); Calcium 8.8 mg/dL (8.4-10.2); Carbon Dioxide 24 mmol/L (22-29); Chloride 109 mmol/L (96-108); Cholesterol 121 mg/dL (<200); Estimated Glomerular Filt Rate > 60; HDL Cholesterol 46 mg/dL (>40); Potassium 4.1 mmol/L (3.3-5.1); Sodium 140 mmol/L (135-145); Total Protein 7.2 g/dL (6.5-8.0); Triglycerides 35 mg/dL (<150)
[2025-04-03 14:09] LABS: Free T4 (Free Thyroxine) 1.04 ng/dL (0.71-1.85); Thyroid Stimulating Hormone 0.65 uIU/mL (0.32-4.0)
[2025-04-03 14:14] LABS: Folate 10.1 ng/mL (> or = 4.0); Vitamin B12 205 pg/mL (200-900)
[2025-04-04 03:31] LABS: HBS Num1 > 1000.00 mIU/mL (0-7.99); ~Hepatitis B Surface Antibody REACTIVE (Nonreactive)
== END 2025-04-03 10:28 | disposition home or self-care (01) ==
LOC: HO.HMGCLDS 10:27
DX: Z00.00 Encounter for general adult medical examination without abnormal findings (principal); Z13.29 Encounter for screening for other suspected endocrine disorder; Z13.220 Encounter for screening for lipoid disorders; Z13.0 Encounter for screening for diseases of the blood and blood-forming organs and certain disorders involving the immune mechanism; Z11.59 Encounter for screening for other viral diseases
CPT/HCPCS: 36415; 80053; 80061; 82306; 82607; 82746; 84439; 84443; 85025; 86706

== ENCOUNTER 2025-04-23 15:26 | Outpatient (AMB) | payer OTHER, SELFPAY ==
--- NOTE | 2025-04-23 15:26 | A.OFFPC_ITS ---
Intake Visit Reasons: 3 month f/u Allergies No Known Allergies Allergy (Verified 04/23/25 15:40) Medication List - Last Reconciled 04/23/25 by Iqra Gaona PA-C albuterol sulfate 90 mcg/actuation (ProAir HFA) 2 puffs PO Q6H PRN ascorbate calcium (vitamin C) 500 mg PO DAILY cholecalciferol (vitamin D3) 10 mcg PO DAILY fexofenadine (Magnolia Allergy) 180 mg PO DAILY lorazepam 1 mg PO BID PRN multivitamin 1 tab PO DAILY semaglutide (weight loss) (Wegovy) mg subcut triamcinolone acetonide 0.1% 1 appl topical DAILY Tobacco use date assessed: 12/21/24 Dental Screening Dental Screen Date: 12/21/24 HPI 3 month f/u HPI Details 39-year-old female with past medical his tory of obesity and anxiety last seen 12/2024 presenting via telehealth for follow up. Patient tells us today she did complete the abdominoplasty about 3 months ago and is feeling well postoperatively. She continues to struggle with depression and anxiety and has not yet heard from the outpatient psych clinic. She has been following with a counselor and feels she may be ready to try medication at this time. [facility] Medical History Morbid obesity due to excess calories Left otitis media Dermoid cyst of both ovaries Nabothian cyst Asthma Anxiety Surgical History History of sterilization procedure History of section Family History Father Diabetes mellitus Heart attack Mother No problems noted. Brother Anxiety Brother No problems noted. Son Asthma Son Asthma Social History Housing: Condominium Alcohol intake: current Alcohol intake frequency: holidays/special occasions only Alcohol type: wine Patient Tobacco Use Status: Never used Tobacco Tobacco use type: Cigarette e-Cigarette/Vaping Use: Never Used Second Hand Smoke Exposure: No service: No Current occupational status: employed Cognitive needs: No Hearing needs: No Vision needs: No Female Reproductive History Menstrual Age of Menarche: 11 Questionnaire Thrive Questionnaire Date Thrive assessed: 12/21/24 AYALA-7 AMB Questionnaire AYALA-7 Date AYALA - 7 assessed: 12/21/24 Source: Developed by Drs. Macario Ruiz, Shelby Feliz, Nick Akhtar and colleagues, with an educational donn from [employer]. Review of Systems Const Denies body aches, Denies chills, Denies fever(s) and Denies poor appetite Eyes Reports no additional complaints Card Denies chest pain and Denies dyspnea Resp Denies dyspnea GI Denies abdominal pain, Denies nausea and Denies vomiting Musc Reports no additional complaints and Denies abnormal gait Skin/Breast Reports system reviewed and no additional complaints, except as documented Neuro Denies abnormal gait Psych Reports no additional complaints Physical exam (Primary Care) Tobacco/Smoking Status: Tobacco use Status Tobacco use date assessed 12/21/24 04/23/25 15:27 Patient Tobacco Use Status Never used Tobacco 04/23/25 15:27 Tobacco use type Cigarette 04/23/25 15:27 e-Cigarette/Vaping Use Never Used 04/23/25 15:27 Thrive Assessment: Date of Thrive Assessment Date Thrive assessed 12/21/24 04/23/25 15:27 Telehealth Telehealth Telehealth Platform: Telephone Location of provider rendering services: practice address Location of patient: address on file Patient Identification confirmed using: Name, : Yes Telehealth method: video Patient verbally consented to treatment: Yes Patient verbally consented to billing insurance company: Yes Coding Level of Care Code Tele Est Pt Level 3 (64123) Diagnoses Anxiety F41.9 Depression F32.A Obesity E66.9 Assessment & Plan Assessment & Plan (1) Anxiety: Code(s): F41.9 - Anxiety disorder, unspecified Category: Medical Plan: For anxiety and depression we discussed a multitude of medications including SSRIs, Wellbutrin and SSRIs. Patient would like to try Wellbutrin as it does not have a side effect of weight gain and she feels this to be most beneficial for her. Plan to trial Wellbutrin 100 mg twice daily and follow up in 2 months. I discussed at length side effects of this medication and when to present for re-evaluation. Patient agrees to reach out if she has any issues or concerns prior to her next visit. (2) Depression: Code(s): F32.A - Depression, unspecified Category: Medical Plan: See above (3) Obesity: Code(s): E66.9 - Obesity, unspecified Category: Medical Plan: Healthy diet and regular exercise is encouraged. Plan This note was constructed using voice recognition software. While every effort has been made to ensure accuracy and healthcare administrator, still areas may have been included sometimes these areas may affect the content or meeting of the given symptoms. Total time spent caring for the patient today was 20 minutes. This includes time spent before the visit reviewing the chart, time spent during the visit, and time spent after the visit and documentation.
--- OUTSIDE RECORDS SUMMARY | 2025-04-23 15:56 | XMS_ITS | Clinical Summary ---
Author Organization [facility] Address [address] [place] [phone] Phone Care Team Providers Care Bale Sewer Name Role Phone Arpan Raymond MD Primary Care Provider [phone] Social History Tobacco Use Types Packs/Day Years [...] Not on file Insurance [place] [place] [address] [place] [address] [place] [address] [place] [address] [place] [address] [place] [address] [place] [address] [place] [address] [place] [address] [place] [address] ACO Care Teams Bale Sewer Relationship Specialty Start Date End Date Arpan Raymond MD [address] [place] [address] [address] PCP - General Internal Medicine 07/10/21 Additional Source Comments The information contained in this document represents components of the legal health record. It is not the complete legal health record.[facility]
--- OUTSIDE RECORDS SUMMARY | 2025-04-23 15:56 | XMS_ITS | Clinical Summary ---
Author Organization [address] [place] [address] Address [address] [place] [address] Phone Care Team Providers Care Door Opener Name Role Phone Physician, No Pcp Primary Care Provider Unavaila ble Allergies No known active allergies Medications ASCORBIC ACID, VITAMIN C, ORAL Take by mouth 1 (one) time each day. Active LORAZEPAM ORAL Take by mouth if needed. Active ergocalciferol, vitamin D2, (VITAMIN D2 ORAL) Take by mouth 1 (one) time each day. Active semaglutide (Wegovy) 2.4 mg/0.75 mL injection penIndications:C lass 1 obesity due to excess calories with body mass index (BMI) of 30.0 to 30.9 in adult, unspecified whether serious comorbidity present Inject 2.4 mg under the skin every 7 (seven) days. 3 mL 5 06/26/20 25 Active tirzepatide, weight loss, (Zepbound) 5 mg/0.5 mL injectionIndicat ions:Severely overweight Inject 0.5 mL (5 mg total) under the skin every 7 (seven) days. 2 mL 5 03/28/20 25 Discontinu ed(Alterna te therapy) Active Problems Problem Noted Date Diagnosed Date Asthma 12/26/2024 Resolved Problems Problem Noted Date Diagnosed Date Resolved Date Excess skin of abdominal wall 12/26/2024 12/26/2024 Encounters Date Type Department Care Team Description 03/28/2025 4:15 PM EDT Office Visit Bariatric Surgery [facility] [address] [facility] [address] [place] [address] Ranjeet Cornejo MD Class 1 obesity due to excess calories with body mass index (BMI) of 30.0 to 30.9 in adult, unspecified whether serious comorbidity present (Primary Dx) 02/01/2025 Telephone Bariatric Surgery - [place] [address] [address] Ranjeet Cornejo MD Medication Problem (Zepbound) from Last 3 Months Surgical History Surgery Date Site/Laterality Comments SECTION PROCEDURE: HISTORICAL DELIVERY SECTION TUBAL LIGATION Medical History Medical History Date Comments Anxiety Depression Social History Tobacco Use Types Packs/Day Years Used Date Smoking Tobacco: Never Smokeless Tobacco: Never Interpersonal Safety Answer Date Record ed Physical Abuse 12/26/2024 Verbal Abuse 12/26/2024 Comments No Sex and Gender Information Value Date Recorded Sex Assigned at Not on file Legal Sex Female 11:02 AM EDT Gender Identity Not on file Sexual Orientation Not on file Obstetrics History Last Filed Vital Signs Vital Sign Reading Time Taken Comments Blood Pressure 112/72 03/28/2025 4:08 PM EDT Pulse 80 03/28/2025 4:08 PM EDT Temperature 36.6 C (97.8 F) 03/28/2025 4:08 PM EDT Respiratory Rate 16 12/26/2024 11:42 AM EDT Oxygen Saturation 97% 12/26/2024 11:42 AM EDT Inhaled Oxygen Concentration - - Weight 84.4 kg (186 lb) 03/28/2025 4:08 PM EDT Height 165.1 cm (5' 5 ) 03/28/2025 4:08 PM EDT Body Mass Index 30.95 03/28/2025 4:08 PM EDT Plan of Treatment Upcoming Encounters Date Type Department Care Team (Late st Contact Info) Description 09/25/2025 4:15 PM EST Office Visit Bariatric Surgery - [place] [address] [address] Ranjeet Cornejo MD [address] [id number] Health Maintenance Due Date Last Done Comments Breast Cancer Screening 1985 DTaP,Tdap,and Td Vaccines (1 - Tdap) 11/05/2003 Hepatitis B Vaccines (1 of 3 - 19+ 3-dose series) 11/05/2003 Pneumococcal Vaccine: Pediat rics (0 to 5 Years) and At-Risk Patients (6 to 49 Years) (1 of 2 - PCV) 11/05/2003 Cervical Cancer Screening: P ap Smear 2005 Cholesterol Screening (Lipid Panel) 03/31/2024 HIV Screening 03/31/2024 Hepatitis C Screening 03/31/2024 Social Influencers of Health Screening 03/31/2024 COVID-19 Vaccine (1 - 2023-2 5 season) 2024 Depression Screening 09/06/2024 Influenza Vaccine (#1) 2025 HIB Vaccines Aged Out No longer [...] patient's age to complete this topic Insurance * Guarantor: Mariel Adorno Account Type Relation to Patient Date of Phone Billing Address Personal/Family Self 1985 [address] [facility] [place] [address] [place] [employer] [facility] [place] [address] Advance Directives * Full Code - Default (Latest Code Status on File) Date Activated Date Inactivated Comments 12/26/2024 6:51 AM 12/26/2024 4:44 PM This is orde r is used when code status has not been discussed with the patient, or code status is otherwise unknown/unconfirmed To update the patient's code status, place a code status order. Do not modify or discontinue any currently active code status orders. Care Teams Door Opener Relationship Specialty Start Date End Date Physician, No Pcp PCP - General 12/26/24
== END 2025-04-23 16:04 | disposition home or self-care (01) ==
LOC: HO.HMCH 15:26
DX: F41.9 Anxiety disorder, unspecified (principal); F32.A Depression, unspecified; E66.9 Obesity, unspecified

== ENCOUNTER 2025-05-31 11:28 | Outpatient (AMB) | payer BC, MEDICAID, SELFPAY ==
[2025-05-31 11:37] VITALS: BP 118/84; PULSE 89; TEMP 36.4; O2SAT 99; BMI 29.8
--- NOTE | 2025-05-31 11:37 | A.OFFPC_ITS ---
Vital Signs 05/31/25 11:37 Height 5 ft 5 in Weight 179 lb 6 oz BMI 29.8 BP 118/84 Blood Pressure Location Lt brachial Position Sitting Pulse 89 Pulse Source Pulse Oximeter Temp 97.5 F Temp Source Temporal Artery Scan Pulse Oximetry (%) 99 Oxygen Delivery Method Room Air Intake Visit Reasons: tired/nauseas/Lethargic Allergies No Known Allergies Allergy (Verified 05/31/25 11:54) Medication List - Last Reconciled 05/31/25 by Iqra Gaona PA-C albuterol sulfate 90 mcg/actuation (ProAir HFA) 2 puffs PO Q6H PRN bupropion HCl 100 mg PO BID fexofenadine (Magnolia Allergy) 180 mg PO DAILY lorazepam 1 mg PO BID PRN triamcinolone acetonide 0.1% 1 appl topical DAILY Tobacco use date assessed: 05/31/25 Dental Screening Dental Screen Date: 05/31/25 Did you have a dental visit in the last 12 months?: Yes Did you have a dental problem in the last 6 months where you did not have access to dental care?: No Was dental information given to patient?: Patient has dentist HPI tired/nauseas/Lethargic HPI Details 39-year-old female with past medical his tory of obesity and anxiety last seen 04/2025 via telehealth coming in for acute problem. Presenting with depression and anxiety exacerbated by work-related stress. Reports increased stress due to job instability, including the elimination of her position and a potential demotion with reduced pay. Experiencing heightened anxiety and has increased her use of lorazepam. Attempting to maintain consistency with her depression medication but finds it challenging due to her current circumstances. Increased therapy sessions to weekly and is considering FMLA leave to manage her mental health better. Currently taking Wellbutrin twice daily but is considering switching to an extended-release formulation for ease of adherence. [facility] Medical History Morbid obesity due to excess calories Left otitis media Dermoid cyst of both ovaries Nabothian cyst Asthma Anxiety Surgical History History of sterilization procedure History of section Family History Father Diabetes mellitus Heart attack Mother No problems noted. Brother Anxiety Brother No problems noted. Son Asthma Son Asthma Social History Housing: Condominium Alcohol intake: current Alcohol intake frequency: holidays/special occasions only Alcohol type: wine Patient Tobacco Use Status: Never used Tobacco Tobacco use type: Cigarette e-Cigarette/Vaping Use: Never Used Second Hand Smoke Exposure: No service: No Current occupational status: employed Cognitive needs: No Hearing needs: No Vision needs: No Female Reproductive History Menstrual Age of Menarche: 11 Questionnaire PHQ-9 Over the last 2 weeks, how often have you been bothered by any of the following problems? 1. Little interest or pleasure in doing things: several days 2. Feeling down, depressed, or hopeless: several days 3. Trouble falling or staying asleep, or sleeping too much: several days 4. Feeling tired or having little energy: more than half the days 5. Poor appetite or overeating: more than half the days 6. Feeling bad about yourself - or that you are a failure or have let yourself or your family down: several days 7. Trouble concentrating on things, such as reading the newspaper or watching television: several days 8. Moving or speaking so slowly that other people could have noticed. Or the opposite - being so fidgety or restless that you have been moving around a lot more than usual: several days 9. Thoughts that you would be better off or of hurting yourself in some way: not at all Total score: 10 Source: Developed by Drs. Macario Ruiz, Shelby Feliz, Nick Akhtar and colleagues, with an educational donn from [employer]. Thrive Questionnaire Date Thrive assessed: 12/21/24 I am a: Patient What is your living situation today?: I have a steady place to live Within the past 12 months, did the food you bought not last and you didn't have the money to get more?: Sometimes True Within the past 12 months, did you worry whether your food would run out before you got money to buy more?: Never true Do you have trouble paying for medicines?: No Do you have trouble getting transportation to medical appointments?: No Do you have trouble paying your heating and electricity bill?: No Do you have trouble taking care of your child, family member or friend?: No Do you have trouble with day-to-day activities such as bathing, preparing meals, shopping, managing finances, etc.?: No Are you currently unemployed and looking for a job?: No Are you interested in more education?: No Please select the resources that you would like help with: None Currently or been in a relationship where the following occur: No concerns reported THRIVE Score: 1 AUDIT C Alcohol Use Questionnaire (AUDIT-C) 1. How often do you have a drink containing alcohol?: Monthly or less 2. How many drinks containing alcohol do you have on a typical day when you are drinking?: 1 or 2 3. How often do you have six or more drinks on one occasion?: Never Total Score: 1 AYALA-7 AMB Questionnaire AYALA-7 Date AYALA - 7 assessed: 12/21/24 Feeling nervous, anxious, or on edge: 1 = Several days Not being able to stop or control worryin = Several days Worrying too much about different things: 2 = More than half the days Trouble relaxin = More than half the days Being so restless that it is hard to sit still: 2 = More than half the days Becoming easily annoyed or irritable: 1 = Several days Feeling afraid as if something awful might happen: 1 = Several days Total AYALA-7 score (0-4 normal; 5-9 mild; 10-14 moderate; 15-21 severe): 10 Source: Developed by Drs. Macario Ruiz, Shelby Feliz, Nick Akhtar and colleagues, with an educational donn from [employer]. Review of Systems Const Denies body aches, Denies chills, Denies fever(s), Denies headache(s) and Denies poor appetite Eyes Reports no additional complaints ENT Denies dizziness and Denies headache(s) Card Denies chest pain, Denies lightheadedness and Denies dyspnea Resp Denies cough and Denies dyspnea Reports no additional complaints Musc Denies abnormal gait Skin/Breast Reports system reviewed and no additional complaints, except as documented Neuro Denies abnormal gait, Denies dizziness and Denies headache(s) Psych Reports as per HPI Physical exam (Primary Care) Vital Signs: Last Vital Signs Temp 97.5 F 05/31/25 11:37 Pulse 89 05/31/25 11:37 BP 118/84 05/31/25 11:37 Pulse Ox 99 05/31/25 11:37 Oxygen Delivery Method Room Air 05/31/25 11:37 BMI result Body Mass Index 29.8 Tobacco/Smoking Status: Tobacco use Status Tobacco use date assessed 05/31/25 05/31/25 11:41 Patient Tobacco Use Status Never used Tobacco 05/31/25 11:41 Tobacco use type Cigarette 05/31/25 11:41 e-Cigarette/Vaping Use Never Used 05/31/25 11:41 PHQ-9: PHQ-9 Score PHQ-9: Total score 10 05/31/25 11:41 Thrive Assessment: Date of Thrive Assessment Date Thrive assessed 12/21/24 05/31/25 11:41 Currently or been in a relationship where the following occur: No concerns reported Const General: cooperative, healthy appearing, comfortable and no acute distress Orientation/consciousness: patient oriented x3 HENMT Head: Yes normocephalic Ears: hearing grossly normal bilaterally General nose exam: Normal external nose present Eyes General: appearance normal, both eyes and all related structures Conjunctivae: conjunctivae normal Neck Neck: Yes full ROM and Yes no lymphadenopathy Resp Effort & Inspection: normal respiratory effort Auscultation: clear to auscultation bilaterally, no crackles, no rales, no rhonchi and no wheezes Cardio Rate: regular rate Rhythm: regular rhythm Skin General skin exam: no rashes or lesions noted Neuro General: patient oriented x3 Gait exam (Neuro): Normal gait present Extrem General: Yes normal to inspection, Yes full ROM and No edema Psych Affect: normal affect Attitude: cooperative Insight: Good insight present (Psych) Judgement: Good judgement present (Psych) Coding Level of Care Code Est Pt Level 3 (06435) Diagnoses Anxiety F41.9 Depression F32.A Obesity E66.9 Assessment & Plan Assessment & Plan (1) Anxiety: Code(s): F41.9 - Anxiety disorder, unspecified Category: Medical Plan: The patient will switch from Wellbutrin twice daily to an extended-release formulation to improve adherence. FMLA paperwork will be completed to allow the patient a month off work to focus on mental health management and allow for the medication to take full effect. Follow-up with a psychiatrist is recommended and referral was placed today. She will continue with her therapist weekly. (2) Depression: Code(s): F32.A - Depression, unspecified Category: Medical Plan: See above (3) Obesity: Code(s): E66.9 - Obesity, unspecified Category: Medical Plan: Healthy diet and regular exercise is encouraged. Plan This note was constructed using voice recognition software. While every effort has been made to ensure accuracy and letter of credit document examiner, still areas may have been included sometimes these areas may affect the content or meeting of the given symptoms. Total time spent caring for the patient today was 20 minutes. This includes time spent before the visit reviewing the chart, time spent during the visit, and time spent after the visit and documentation. Orders: Referrals Psychiatry Outpatient Consultation Service F32.A - Depression, unspecified, F 41.9 - Anxiety disorder, unspecified Medications: New bupropion HCl XL (Wellbutrin XL) 150 mg PO QAM 90 tabs 0RF Discontinued bupropion HCl Discontinued Reason: Patient no longer taking 100 mg PO BID 60 tabs 1RF
--- OUTSIDE RECORDS SUMMARY | 2025-05-31 16:20 | XMS_ITS | Clinical Summary ---
Author Organization [facility] Address [address] [place] [id number] Phone Care Team Providers Care Paste Mixer Name Role Phone Arpan Raymond MD Primary Care Provider [phone] Social History Tobacco Use Types Packs/Day Years [...] (18-6 5 YEARS) 2002 PAP SMEAR 2005 MAMMOGRAM 2024 INFLUENZA VACCINE (#1) 2025 07/23/2021 COVID-19 VACCINE (3 2024-2 6 season) 2025 01/15/2021, 12/26/2020 Adult Td,Tdap Booster 04/21/2027 04/21/2017 HEPATITIS A [...] Not on file Insurance ACO ACO ACO [employer] [address] [place] [address] [employer] [place] [address] [place] [address] [place] [address] [address] [place] [address] [place] [address] [address] [place] [address] ACO Care Teams Paste Mixer Relationship Specialty Start Date End Date Arpan Raymond MD [address] [place] [address] [place] [address] PCP - General Internal Medicine 07/10/21 Additional Source Comments The information contained in this document represents components of the legal health record. It is not the complete legal health record.[facility]
== END 2025-05-31 12:20 | disposition home or self-care (01) ==
LOC: HO.HMCH 11:29
DX: F41.9 Anxiety disorder, unspecified (principal); F32.A Depression, unspecified; E66.9 Obesity, unspecified; Z68.29 Body mass index [BMI] 29.0-29.9, adult

== ENCOUNTER 2025-06-27 09:55 | Outpatient (AMB) | payer OTHER, MEDICAID, SELFPAY ==
[2025-06-27 10:01] VITALS: BP 110/68; PULSE 72; RESP 18; O2SAT 95; BMI 29.9
--- NOTE | 2025-06-27 10:01 | A.OFFPC_ITS ---
Vital Signs 06/27/25 10:01 Height 5 ft 5 in Weight 179 lb 8 oz BMI 29.9 BP 110/68 Blood Pressure Location Lt brachial Position Standing Respiration 18 Pulse 72 Pulse Source Pulse Oximeter Temp Source Temporal Artery Scan Pulse Oximetry (%) 95 Oxygen Delivery Method Room Air Intake Visit Reasons: 1 month f/u Taker Off Required: No Accompanied by: Self / Same As Patient Allergies No Known Allergies Allergy (Verified 06/27/25 10:11) Medication List - Last Reconciled 06/27/25 by Iqra Gaona PA-C albuterol sulfate 90 mcg/actuation (ProAir HFA) 2 puffs PO Q6H PRN bupropion HCl XL (Wellbutrin XL) 150 mg PO QAM fexofenadine (Magnolia Allergy) 180 mg PO DAILY lorazepam 1 mg PO BID PRN triamcinolone acetonide 0.1% 1 appl topical DAILY Tobacco use date assessed: 06/27/25 Dental Screening Dental Screen Date: 06/27/25 Did you have a dental visit in the last 12 months?: Yes Did you have a dental problem in the last 6 months where you did not have access to dental care?: No Was dental information given to patient?: Patient has dentist HPI 1 month f/u HPI Details 39-year-old female with past medical his tory of obesity and anxiety last seen 06/2025 coming in for follow up. Presenting for a follow-up visit regarding her mental health management, specifically focusing on depression and anxiety. The patient reports ongoing symptoms of depression, with a particularly rough week last week due to personal and work-related stressors. She is a single mother of two, which adds to her stress, and she is currently undergoing a healing journey from a significant emotional stress a year and a half ago. The patient reports some improvement in anxiety symptoms since switching to a once-daily Wellbutrin regimen, although she still experiences fluctuations. She is currently in weekly therapy and has scheduled an appointment with a psychiatrist for medication management and an ADHD evaluation. She is scheduled to see Nadege Coreas 07/27/2025 through [facility] via zoom at which time further recommendations about her leave will be made. [facility] Medical History Morbid obesity due to excess calories Left otitis media Dermoid cyst of both ovaries Nabothian cyst Asthma Anxiety Surgical History History of sterilization procedure History of section Family History Father Diabetes mellitus Heart attack Mother No problems noted. Brother Anxiety Brother No problems noted. Son Asthma Son Asthma Social History Housing: Condominium Alcohol intake: current Alcohol intake frequency: holidays/special occasions only Alcohol type: wine Patient Tobacco Use Status: Never used Tobacco Tobacco use type: Cigarette e-Cigarette/Vaping Use: Never Used Second Hand Smoke Exposure: No service: No Current occupational status: employed Cognitive needs: No Hearing needs: No Vision needs: No Female Reproductive History Menstrual Age of Menarche: 11 Questionnaire Thrive Questionnaire Date Thrive assessed: 05/31/25 I am a: Patient What is your living situation today?: I have a steady place to live Within the past 12 months, did the food you bought not last and you didn't have the money to get more?: Sometimes True Within the past 12 months, did you worry whether your food would run out before you got money to buy more?: Never true Do you have trouble paying for medicines?: No Do you have trouble getting transportation to medical appointments?: No Do you have trouble paying your heating and electricity bill?: No Do you have trouble taking care of your child, family member or friend?: No Do you have trouble with day-to-day activities such as bathing, preparing meals, shopping, managing finances, etc.?: No Are you currently unemployed and looking for a job?: No Are you interested in more education?: No Please select the resources that you would like help with: None Currently or been in a relationship where the following occur: No concerns reported THRIVE Score: 1 AYALA-7 AMB Questionnaire AYALA-7 Date AYALA - 7 assessed: 12/21/24 Source: Developed by Drs. Macario Ruiz, Shelby Feliz, Nick Akhtar and colleagues, with an educational donn from [employer]. Review of Systems Const Denies body aches, Denies chills, Denies fever(s), Denies headache(s) and Denies poor appetite Eyes Reports no additional complaints ENT Denies dizziness and Denies headache(s) Card Denies chest pain, Denies edema, Denies lightheadedness and Denies dyspnea Resp Denies dyspnea GI Denies nausea and Denies vomiting Reports no additional complaints Musc Reports no additional complaints and Denies abnormal gait Skin/Breast Reports system reviewed and no additional complaints, except as documented Neuro Denies abnormal gait, Denies dizziness and Denies headache(s) Psych Reports no additional complaints Physical exam (Primary Care) Vital Signs: Last Vital Signs Pulse 72 06/27/25 10:01 Resp 18 06/27/25 10:01 BP 110/68 06/27/25 10:01 Pulse Ox 95 06/27/25 10:01 Oxygen Delivery Method Room Air 06/27/25 10:01 BMI result Body Mass Index 29.9 Tobacco/Smoking Status: Tobacco use Status Tobacco use date assessed 06/27/25 06/27/25 10:08 Patient Tobacco Use Status Never used Tobacco 06/27/25 10:08 Tobacco use type Cigarette 06/27/25 10:08 e-Cigarette/Vaping Use Never Used 06/27/25 10:08 Thrive Assessment: Date of Thrive Assessment Date Thrive assessed 05/31/25 06/27/25 10:08 Currently or been in a relationship where the following occur: No concerns reported Const General: cooperative, healthy appearing, comfortable and no acute distress Orientation/consciousness: patient oriented x3 HENMT Head: Yes normocephalic Ears: hearing grossly normal bilaterally General nose exam: Normal external nose present Eyes General: appearance normal, both eyes and all related structures Conjunctivae: conjunctivae normal Neck Neck: Yes full ROM and Yes no lymphadenopathy Resp Effort & Inspection: normal respiratory effort Auscultation: clear to auscultation bilaterally, no crackles, no rales, no rhonchi and no wheezes Cardio Rate: regular rate Rhythm: regular rhythm Skin General skin exam: no rashes or lesions noted Neuro General: patient oriented x3 Gait exam (Neuro): Normal gait present Extrem General: Yes normal to inspection, Yes full ROM and No edema Psych Affect: normal affect Attitude: cooperative Insight: Good insight present (Psych) Judgement: Good judgement present (Psych) Office Procedures Flu Questionnaire Does the patient have a severe egg allergy?: No Does the patient have severe life threatening allergies?: No Does the patient have a fever or illness today?: No Has the patient ever had Guillain-Iron Station Syndrome?: No Has the patient ever had any past reaction to a flu shot?: No Immunizations Fluarix [id number] (PF) 45 mcg (15 mcg x 3)/0.5 mL IM syringe Performing Provider: Iqra Gaona PA-C [place] [facility] [place] [facility] Administered by: Luba Hutchison RN on 06/27/25 10:34 Dose Route Admin Location Dispensed Lot Number Expiration Date NDC Entry Level Account Representative 0.5 mL IM Left Deltoid 0.5 mL [id number] 03/05/26 [id number] [employer] VIS Given Date VIS Provided VIS Publication Date 06/27/25 Single Vaccine 24 Eligibility Eligibility Date Funding Source Not [facility] Eligible 06/27/25 Private Coding Level of Care Code Est Pt Level 3 (95836) Diagnoses Anxiety F41.9 Depression F32.A Obesity E66.9 Assessment & Plan Assessment & Plan (1) Anxiety: Code(s): F41.9 - Anxiety disorder, unspecified Category: Medical Plan: 05/2025: The patient will switch from Wellbutrin twice daily to an extended- release formulation to improve adherence. FMLA paperwork will be completed to allow the patient a month off work to focus on mental health management and allow for the medication to take full effect. Follow-up with a psychiatrist is recommended and referral was placed today. She will continue with her therapist weekly. 06/2025: The patient will continue on the current Wellbutrin regimen, with plans to monitor symptoms and adjust as necessary following the psychiatrist's evaluation. We will plan to extend her FMLA paperwork until her appointment with a psychiatrist at which point I did inform the patient she will need to provide further recommendations from her psychiatrist or have her psychiatrist maintain FMLA paperwork going forward. She would like to maintain the current dose of Wellbutrin (2) Depression: Code(s): F32.A - Depression, unspecified Category: Medical Plan: See above (3) Obesity: Code(s): E66.9 - Obesity, unspecified Category: Medical Plan: Healthy diet and regular exercise is encouraged. Plan During the visit, we discussed the continuation of the current Wellbutrin regimen for depression and anxiety management. The patient is advised to maintain weekly therapy sessions and has an upcoming appointment for an ADHD evaluation. We also discussed the extension of her medical leave until the psychiatrist's evaluation is completed, with further extensions based on recommendations from the psychiatrist. This note was constructed using voice recognition software. While every effort has been made to ensure accuracy and funeral sales manager, still areas may have been included sometimes these areas may affect the content or meeting of the given symptoms. Total time spent caring for the patient today was 20 minutes. This includes time spent before the visit reviewing the chart, time spent during the visit, and time spent after the visit and documentation. Orders: Orders Influenza [id number] Immunization Today Z23 - Encounter for immunization
--- OUTSIDE RECORDS SUMMARY | 2025-06-27 11:58 | XMS_ITS | Clinical Summary ---
Author Organization [facility] Address [address] [place] [phone] Phone Care Team Providers Care Composition Floor Setter Name Role Phone Arpan Raymond MD Primary Care Provider [phone] Social History Tobacco Use Types Packs/Day Years [...] on file Insurance ACO ACO ACO ACO Medicine in Practice [employer] [address] [place] [address] ACO Medicine in [address] [place] [address] [place] [address] [place] [address] [place] [address] [place] [address] ACO Care Teams Composition Floor Setter Relationship Specialty Start Date End Date Arpan Raymond MD [address] [place] [address] [place] [address] PCP - General Internal Medicine 07/10/21 Additional Source Comments The information contained in this document represents components of the legal health record. It is not the complete legal health record.[facility]
--- OUTSIDE RECORDS SUMMARY | 2025-06-27 11:58 | XMS_ITS | Clinical Summary ---
Author Organization [facility] Address [address] [place] [address] Phone Care Team Providers Care Social Worker Assistant Name Role Phone Physician, No Pcp Primary [...] every 7 (seven) days. 3 mL 5 05/23/2025 Active Active Problems Problem Noted Date Diagnosed Date Asthma 12/26/2024 Resolved Problems Problem Noted Date Diagnosed Date Resolved Date Excess skin of abdominal wall 12/26/2024 12/26/2024 Encounters Date Type Department Care Team Description 05/22/2025 Telephone Bariatric Surgery [address] [phone] Ranjeet Cornejo MD 04/26/2025 Telephone Bariatric Surgery [address] [phone] Ranjeet Cornejo MD 03/28/2025 4:15 PM EDT Office Visit Bariatric Surgery [address] [phone] Ranjeet Cornejo MD Class 1 obesity due to excess calories with body mass index (BMI) of 30.0 to 30.9 in adult, unspecified whether serious comorbidity present (Primary Dx) from Last 3 Months Surgical History Surgery Date Site/Laterality Comments SECTION PROCEDURE: HISTORICAL DELIVERY SECTION TUBAL LIGATION Medical History Medical History Date Comments Anxiety Depression Social History Tobacco Use Types Packs/Day Years Used Date Smoking Tobacco: Never Smokeless Tobacco: Never Interpersonal Safety Answer Date Record ed Physical Abuse Unrecognized value 12/26/2024 Verbal Abuse Unrecognized value 12/26/2024 Comments No Sex and Gender Information [...] Team (Late st Contact Info) Description 09/25/2025 1:30 PM EST Office Visit Bariatric Surgery [facility] [address] [phone] Ranjeet Cornejo MD [address] [place] [phone] Health Maintenance Due Date Last Done Comments Breast Cancer Screening 1984 DTaP,Tdap,and Td Vaccines (1 - Tdap) 11/05/2003 Hepatitis B Vaccines (1 of 3 - 19+ 3-dose series) 11/05/2003 Pneumococcal Vaccine: Pediat rics (0 to 5 Years) and At-Risk Patients (6 to 49 Years) (1 of 2 - PCV) 11/05/2003 Cervical Cancer Screening: P ap Smear 2005 HPV Vaccines (1 - 3-dose SCD M series) 11/05/2011 Cholesterol Screening (Lipid Panel) 03/31/2024 HIV Screening 03/31/2024 Hepatitis C Screening 03/31/2024 Social Influencers of Health Screening 03/31/2024 Depression Screening 09/06/2024 COVID-19 Vaccine (1 - 2023-2 5 season) 2025 Influenza Vaccine (#1) 2025 RSV Immunization Adult Patie nts (1 - 1-dose 75+ series) 11/05/2059 HIB Vaccines Aged Out No longer eligi [...] complete this topic Insurance [place] [employer] [facility] Advance Directives * Full Code - Default [...] currently active code status orders. Care Teams Social Worker Assistant Relationship Specialty Start Date End Date Physician, No Pcp PCP - General 12/26/24
== END 2025-06-27 10:47 | disposition home or self-care (01) ==
LOC: HO.HMCH 09:56
DX: F41.9 Anxiety disorder, unspecified (principal); F32.A Depression, unspecified; E66.9 Obesity, unspecified; Z68.29 Body mass index [BMI] 29.0-29.9, adult; Z23 Encounter for immunization

== ENCOUNTER → 2025-06-27 09:55 | Outpatient (BNVA) | payer OTHER, MEDICAID, SELFPAY | DX: F32.A Depression, unspecified (principal); F41.9 Anxiety disorder, unspecified; E66.9 Obesity, unspecified; Z23 Encounter for immunization; Z68.29 Body mass index [BMI] 29.0-29.9, adult | CPT/HCPCS: 90471; 90656 ==